=== PATIENT | female | born 1955 | race Caucasian/White ===

== ENCOUNTER 2016-05-09 03:39 | Inpatient (IN) | payer OTHER ==
[2016-05-09] VITALS (17 sets, daily range): BP systolic 95–142; BP diastolic 47–90
[~2016-05-09] VITALS: Ht 162.6 cm; Wt 69.0 kg
[~2016-05-09 03:39] MED LIST: ACETAMINOP160 MG/51 GT; ACETAMINOP160 MG/51 PO; ACETAMINOPHEN650 M7 PO; ADULT SUPPOSIT1 EACH PR; ADULT TUSS100 MG/5 M GT; ALER-CAP25 M2 GT; AMIKACIN (500 MG/2 M IV; AMIKACIN IV; AMLODIPINE BESY10 MG GT; AMLODIPINE BESYL5 MG GT; AQUAPHOR OINTM105 GM TP; AQUAPHOR W-NAT50 GM TP; ARTIFICIAL TEAR15 M1 BOTH EYES; ARTIFICIAL TEAR15 M6 BOTH EYES; ARTIFICIAL TEAR1510 BOTH EYES; ASCORBIC ACID GT; ASCORBIC ACID250 MG GT; ASCORBIC ACID500 M3 GT; ATIVAN0.5 MG GT; ATIVAN1 M1 GT; ATIVAN1 MG G; ATIVAN1 MG GT; ATIVAN2 MG/1 ML IM; ATROVENT H200 INHALA IH; AZACTAM IV; BACLOFEN10 MG GT; BAZA PROTECT CR57 GM TP; BENADRYL50 MG/ML IV; BENEFIBER1 EACH PO; BENZTROPINE ME0.5 MG GT; BICARSIM80 MG GT; BISAC-EVAC10 MG PR; BUDESONIDE0.5 MG/2 M IH; CACARB500L GT; CALCIDOL8000 UNIT/ GT; CALCIDOL8000 UNIT/ PO; CALCIO DEL MAR500 MG GT; CALCIUM CA1250 MG/5 GT; CALTRATE 6001 TABLE2 G; CARAFATE100 MG/ML GT; CEFDINIR300 MG PO; CEFEPIME HCL2 GM IM; CERTA VITE9 MG/15 ML GT; CERTA-VITE240 ML GT; CERTA-VITE240 ML PO; CERTAGEN GT; CHILDREN'S160 MG/15 GT; CHILDREN'S160 MG/16 GT; CHILDREN'S160 MG/16 PO; CHILDREN'S160 MG/18 GT; CHILDREN'S160 MG/23 GT; CHILDREN'S5 MG/5 M1 GT; CHILDREN'S5 MG/5 ML GT; CHLORHEXIDINE473 ML MM; CHLORPROMAZINE100 MG GT; CHLORPROMAZINE25 MG GT; CHLORPROMAZINE25 MG PO; CHLORPROMAZINE50 MG GT; CHLORPROMAZINE50 MG PO; CHOLESTYRAMINE L4 GM PO; CLARITIN10 MG GT; COGENTIN0.5 MG GT; COLACE10 MG/ML GT; COLACE10 MG/ML PO; COLACE100 MG GT; COLACE100 MG PO; COMBIVENT200 INHALA IH; CONSTULOSE10 GM/15 M GT; CONSTULOSE10 GM/15 M PO; CORTANE-B OTIC10 ML BOTH EARS; COUGH SYRU100 MG/5 M GT; CRANBERRY FRUI475 MG GT; CRANBERRY200 MG GT; CRANBERRY307 MG GT; CRANBERRY475 MG GT; Chronulac,Cephulac,E G; Citrate Of Magnesia G; Combivent IH; DEPAKENE250 MG/5 M GT; DEXTROSE 50%50 ML IV; DIFLUCAN100 MG PO; DIOCTO50 MG/5 ML GT; DIOCTO50 MG/5 ML PO; DOCU LIQUI50 MG/5 ML GT; DORIBAX500 MG IV; DOXYCYCLINE HY100 MG GT; DOXYCYCLINE HY100 MG PO; DULCOLAX10 MG PR; DUONEB 2.5-0.5 M3 ML IH; DURAGESIC25 MCG TD; DURAGESIC50 MCG TD; Duragesic TD; ENALAPRIL MALEAT5 MG GT; ENDOCET 5-3251 EAC1 G-TUBE; ENDOCET 5-3251 EACH GT; ENULOSE10 GM/15 M GT; ERGOCALCIF8000 UNIT/ GT; EUCERIN CREME57 GM TP; FENOFIBRATE145 M1 GT; FENTANYL1 EAC1 TD; FEOSOL300 MG/5 M GT; FEOSOL325 MG PO; FEOSOL44 MG/ML GT; FEROSUL220 MG/51 GT; FLORASTOR250 MG GT; FLOVENT 22120 INHALA IH; FOLIC ACID1 MG PO; GABAPENTIN300 MG GT; GAS RELIEF 8080 MG GT; GEMFIBROZIL600 MG GT; GENERLAC10 GM/15 M GT; GLUCAGEN1 MG IM; GLUCAGON HCL1 MG IM; GLUCAGON1 MG IM; GLUCERNA237 ML PO/PEG; GLUCOPHAGE1000 M1 PO; GLUCOPHAGE1000 MG NG/PO; GLYCERIN MC; GLYCERIN PR; GOLDEN AGE240 ML GT; HEPARIN SO5000 UNITS SC; HUMULIN R500 UNITS/ SC; HYDROPHOR OINT454 GM TP; INVANZ1 GM IV; IPRATR-ALBUTEROL3 ML IH; KAY CIEL20 MEQ/15 G-TUBE; LACTINEX,FLO1 PACKET GT; LACTULOSE10 GM/151 GT; LANTUS 3 M100 UNITS1 SC; LANTUS100 UNIT/1 SQ; LASIX40 MG GT; LEVEMIR FL100 UNIT/1 SC; LEVEMIR100 UNIT/2 SC; LEVOTHROID125 MCG G; LEVOTHYROXINE100 MCG GT; LEVOTHYROXINE112 MCG GT; LEVOTHYROXINE150 MCG PO; LEVOXYL100 MCG GT; LEVOXYL112 MCG GT; LIPITOR20 MG PO; LIPITOR40 MG PO; LOPID600 MG GT; LOPID600 MG NG; LOPRESSOR12.5 MG PO; LOPRESSOR25 MG GT; LORATADINE5 MG/5 M3 GT; LORAZEPAM0.5 MG GT; LORAZEPAM1 MG GT; LORAZEPAM1 MG PO; LORAZEPAM2 MG/1 M1 IV; MACRODANTIN100 MG GT; MAXIPIME2 GM IM; METOLAZONE10 MG GT; METOLAZONE2.5 MG PO; METOPROLOL SUCC25 MG PO; METOPROLOL TART25 MG GT; MI-ACID80 MG GT; MI-ACID80 MG PO; MILK OF MAGNESI10 ML G-TUBE; MIRALAX17 GM GT; MORPHINE CON20 MG/M1 SL; MORPHINE SULFA1 DOSE IM; MYCOSTATIN 100,60 ML PO; MYCOSTATIN1 APPLICAT TP; MYLICON,MYLANTA80 MG GT; NEBCIN40 MG/ML IV; NEURONTIN300 MG GT; NEURONTIN50 MG/ML GT; NIACIN500 MG PO; NIZORAL 2% CREA15 GM TP; NORVASC5 MG GT; NORVASC5 MG PO; NOVOLIN R (UNI1 UNIT IV/SC; NOVOLOG (UNITS1 UNIT SC; NOVOLOG 10100 UNITS/ SC; NOVOLOG PE100 UNITS/ SC; NOVOLOG100 UNIT/1 SQ; OXYCODONE HCL5 MG GT; OXYCODONE-ACET1 EACH GT; OXYCODONE5 MG GT; PATADAY2.5 ML OP; PATANOL OP100 DROP/5 BOTH EYES; PERCOCET 5/31 TABLET GT; PERIDEX1 ML MM; PERIOGARD480 ML MM; PERIOGARD480 ML PO; POTASSIUM20 MEQ/11 GT; PRAVACHOL20 MG GT; PRAVASTATIN SOD20 MG GT; PREDNISONE20 MG GT; PREVACID SOLUTA30 M1 GT; PREVACID SOLUTA30 MG GT; PREVACID30 MG GT; PROBIOTIC1 EAC1 GT; PROSOURCE LIQUI30 ML GT; PROSOURCE LIQUI30 ML PO; PROTEIN PO; PROTEXIN PO; PROTONIX40 M1 GT; PROTONIX40 M1 PO; PROTONIX40 MG GT; PROVENTIL,2.5 MG/0.5 IH; PROVENTIL,2.5 MG/3 M IH; PROVENTIL2.5 MG/3 M IH; Peridex PO; Prednisone GT; Q-TUSSIN DM SY240 ML GT; QUESTRAN PACKET4 GM GT; QUETIAPINE FUM400 MG GT; RISAMINE OINTM113 GM TP; RISPERDAL M-TAB2 MG PO; RISPERDAL2 MG G; RISPERIDONE2 MG PO; SENEXON8.8 MG/5 M GT; SENNA8.8 MG/5 M G-TUBE; SENNA8.8 MG/5 M GT; SENNA8.8 MG/5 M PO; SENOKOT GT; SENOKOT5 ML GT; SEROQUEL400 MG PO; SILACE50 MG/5 ML GT; SILTUSSIN100 MG/51 GT; SILVADENE20 GM TP; SIMETHICONE80 MG GT; SIMVASTATIN80 MG GT; STAVZOR500 MG GT; STOOL SOFT50 MG/5 ML GT; SYNTHROID100 MCG GT; SYNTHROID112 MCG GT; THERAGRAN1 TABLET GT; THORAZINE25 MG GT; THORAZINE50 MG GT; TOBRAMYCIN SULFA5 ML BOTH EYES; TOPROL XL50 MG PO; TRAMADOL HCL50 MG GT; TRICOR145 MG GT; TRICOR145 MG PO; TYLENOL REGULA325 MG GT; Tylenol PR; Tylenol Regular Stre PO; ULTRAM50 MG GT; UNITHROID200 MCG PO; VANCOMYCIN HCL1 GM IV; VANCOMYCIN1 GM/250 M IV; VANICREAM113 GM TP; VASOTEC5 MG GT; VITAMIN C100 MG/1 M GT; VITAMIN C250 MG NG; VITAMIN C500 MG/15 GT; VITAMIN D50000 UNI1 GT; Vitamin D G; WELCHOL625 MG GT; ZITHROMAX500 M3 GT; ZOCOR80 M1 GT; ZOFRAN4 MG/2 ML IV; ZOSYN 3.3753.375 GM IV; ZOSYN3.375 GM/5 IV; ZYVOX200 MG/100 IV; [UNRECOGNIZED DRUG - OTHER]; [UNRECOGNIZED DRUG - OTHER] GT; [UNRECOGNIZED DRUG - OTHER] GT; [UNRECOGNIZED DRUG - OTHER] PO; [UNRECOGNIZED DRUG - OTHER] PR
[2016-05-09 04:29] LABS: CARBON DIOXIDE (BICARBONATE) > 40.0 MEQ/L (20-31); VENOUS PCO2 88 mm Hg (41-51)
[2016-05-09 04:42] LABS: CHLORIDE 77 mEq/L (99-109); POTASSIUM 5.7 mEq/L (3.7-5.4); SODIUM 122 mEq/L (136-147)
[2016-05-09 04:44] LABS: GLUCOSE 386 mg/dL (70-99)
[2016-05-09 04:46] LABS: ANION GAP 8 MEQ/L (2-14); HEMATOCRIT 18.3 % (36.0-46.0); MCH 30.8 PG (29.0-34.0); MCHC 30.6 G/DL (30.0-36.0); MCV 100.5 FL (83-99); MEAN PLAT.VOLUME 11.8 uM^3 (9.5-12.4); PLATELET COUNT 189 K/uL (156-360); RBC DIS.WIDTH-CV 16.3 % (11.8-14.6); RBC DIS.WIDTH-SD 55.7 % (39-53)
[2016-05-09 04:47] LABS: RED BLOOD COUNT 1.82 M/uL (3.80-5.20); WHITE BLOOD COUNT 10.4 K/uL (4.1-10.2)
[2016-05-09 04:47] LABS: BASE EXCESS 14.5 mEq/L (-3 to +3); BICARBONATE 42.5 mEq/L (22-26); PCO2 67 mm Hg (35-45); pH 7.41 (7.35-7.45)
[2016-05-09 04:48] LABS: GFR ESTIMATE (CALCULATED) > 59 mL/min/
[2016-05-09 04:48] LABS: COMMENTS - BLOOD GASES C+; DEVICE 840; FI02 50 %; MECHANICAL RATE 22 resp/min; MODE AC; PEEP 5 CM/H20; PO2 108 mm Hg (80-100); SITE LR; TIDAL VOLUME 450 ML; TOTAL RESP RATE 22 resp/min
[2016-05-09 04:49] LABS: UREA NITROGEN (BUN) 49 mg/dL (9-23)
[2016-05-09 04:52] LABS: TROP-I INTERPRETATION NEGATIVE; TROPONIN-I < 0.01 ng/mL (0.0-0.30)
[2016-05-09] MEDS ORDERED: CHLORPROMAZINE25 MG GT (08:33)
[2016-05-09] MEDS ORDERED: SILTUSSIN100 MG/51 GT (08:35)
[2016-05-09 18:21] LABS: METH RESISTANT S AUREUS PCR POSITIVE (NEGATIVE)
[2016-05-09 18:24] LABS: PROBE CHECK PASS
[2016-05-09 21:22] LABS: POINT-OF-CARE METER ID UU14174217; POINT-OF-CARE USER ID PHATLC
[2016-05-09 22:25] LABS: HEMATOCRIT 24.3 % (36.0-46.0); MCHC 32.5 G/DL (30.0-36.0); MCV 95.3 FL (83-99); MEAN PLAT.VOLUME 11.5 uM^3 (9.5-12.4); PLATELET COUNT 192 K/uL (156-360); RBC DIS.WIDTH-CV 16.4 % (11.8-14.6); RBC DIS.WIDTH-SD 56.5 % (39-53); RED BLOOD COUNT 2.55 M/uL (3.80-5.20); WHITE BLOOD COUNT 11.8 K/uL (4.1-10.2)
[2016-05-09 22:36] LABS: ANION GAP 8 MEQ/L (2-14); CHLORIDE 88 MEQ/L (99-109); GFR ESTIMATE (CALCULATED) > 59 mL/min/; SAMPLE HEMOLYSIS CHECK 0; SAMPLE ICTERIC CHECK 0; SAMPLE LIPEMIA CHECK 0; UREA NITROGEN (BUN) 50 mg/dL (9-23)
[2016-05-09 22:41] LABS: GLUCOSE 81 mg/dL (70-99); POTASSIUM 4.2 MEQ/L (3.7-5.4); SODIUM 134 MEQ/L (136-147)
[2016-05-10] VITALS (20 sets, daily range): BP systolic 90–139; BP diastolic 41–62
[2016-05-10 05:28] LABS: HEMATOCRIT 25.4 % (36.0-46.0); MCH 30.3 PG (29.0-34.0); MCHC 31.5 G/DL (30.0-36.0); MCV 96.2 FL (83-99); MEAN PLAT.VOLUME 11.5 uM^3 (9.5-12.4); PLATELET COUNT 193 K/uL (156-360); RBC DIS.WIDTH-CV 16.7 % (11.8-14.6); RBC DIS.WIDTH-SD 57.3 % (39-53); RED BLOOD COUNT 2.64 M/uL (3.80-5.20); WHITE BLOOD COUNT 12.3 K/uL (4.1-10.2)
[2016-05-10 05:55] LABS: ANION GAP 5 MEQ/L (2-14); CHLORIDE 91 MEQ/L (99-109); GFR ESTIMATE (CALCULATED) > 59 mL/min/; GLUCOSE 95 mg/dL (70-99); POTASSIUM 4.3 MEQ/L (3.7-5.4); SAMPLE HEMOLYSIS CHECK 0; SAMPLE ICTERIC CHECK 0; SAMPLE LIPEMIA CHECK 0; SODIUM 134 MEQ/L (136-147); UREA NITROGEN (BUN) 49 mg/dL (9-23)
[2016-05-10 11:57] LABS: POINT-OF-CARE METER ID UU13113748
[2016-05-10 16:03] LABS: POINT-OF-CARE METER ID UU13113748
[2016-05-10 20:59] LABS: POINT-OF-CARE METER ID UU13113748; POINT-OF-CARE USER ID PHATLC
[2016-05-11] VITALS (11 sets, daily range): BP systolic 92–143; BP diastolic 43–70
[2016-05-11 09:30] LABS: POINT-OF-CARE METER ID UU13113731
[2016-05-11 09:30] LABS: ANION GAP 7 MEQ/L (2-14); CHLORIDE 97 MEQ/L (99-109); GFR ESTIMATE (CALCULATED) > 59 mL/min/; GLUCOSE 129 mg/dL (70-99); POTASSIUM 4.6 MEQ/L (3.7-5.4); SAMPLE HEMOLYSIS CHECK 0; SAMPLE ICTERIC CHECK 0; SAMPLE LIPEMIA CHECK 0; SODIUM 140 MEQ/L (136-147); UREA NITROGEN (BUN) 41 mg/dL (9-23)
[2016-05-11 09:32] LABS: EOSINOPHIL (%) 2.2 % (0-5); EOSINOPHIL COUNT 0.3 K/uL (0-0.3); HEMATOCRIT 28.5 % (36.0-46.0); IMMATURE GRANULOCYTE (%) 1.5 % (0.0-0.7); IMMATURE GRANULOCYTE COUNT 0.2 K/uL; LYMPHOCYTE COUNT 1.3 K/uL (1.0-2.8); MCH 30.3 PG (29.0-34.0); MCHC 30.2 G/DL (30.0-36.0); MCV 100.4 FL (83-99); MEAN PLAT.VOLUME 11.2 uM^3 (9.5-12.4); MONOCYTE (%) 3.4 % (3-12); MONOCYTE COUNT 0.5 K/uL (0-0.8); NEUTROPHIL COUNT 10.9 K/uL (1.8-6.4); PLATELET COUNT 198 K/uL (156-360); RBC DIS.WIDTH-CV 16.9 % (11.8-14.6); RBC DIS.WIDTH-SD 60.2 % (39-53); RED BLOOD COUNT 2.84 M/uL (3.80-5.20); WHITE BLOOD COUNT 13.1 K/uL (4.1-10.2)
[2016-05-11 12:26] LABS: POINT-OF-CARE METER ID UU13113803
[2016-05-11 23:16] LABS: POINT-OF-CARE METER ID UU13113731
[2016-05-11 23:59] LABS: POINT-OF-CARE METER ID UU13113731
[2016-05-12] VITALS: BP 130/57
[2016-05-12 04:10] VITALS: BP 127/67
[2016-05-12 06:18] LABS: EOSINOPHIL (%) 2.7 % (0-5); EOSINOPHIL COUNT 0.5 K/uL (0-0.3); HEMATOCRIT 29.1 % (36.0-46.0); IMMATURE GRANULOCYTE COUNT 0.2 K/uL; LYMPHOCYTE COUNT 1.7 K/uL (1.0-2.8); MCH 31.3 PG (29.0-34.0); MCHC 30.6 G/DL (30.0-36.0); MCV 102.5 FL (83-99); MEAN PLAT.VOLUME 11.7 uM^3 (9.5-12.4); MONOCYTE (%) 2.5 % (3-12); MONOCYTE COUNT 0.4 K/uL (0-0.8); NEUTROPHIL (%) 83.7 % (45-76); NEUTROPHIL COUNT 14.2 K/uL (1.8-6.4); PLATELET COUNT 227 K/uL (156-360); RBC DIS.WIDTH-CV 16.9 % (11.8-14.6); RBC DIS.WIDTH-SD 62.3 % (39-53); RED BLOOD COUNT 2.84 M/uL (3.80-5.20)
[2016-05-12 06:35] LABS: POINT-OF-CARE METER ID UU13113731
[2016-05-12 07:49] LABS: ANION GAP 9 MEQ/L (2-14); CHLORIDE 97 MEQ/L (99-109); GFR ESTIMATE (CALCULATED) > 59 mL/min/; POTASSIUM 4.7 MEQ/L (3.7-5.4); SAMPLE HEMOLYSIS CHECK 0; SAMPLE ICTERIC CHECK 0; SAMPLE LIPEMIA CHECK 0; SODIUM 141 MEQ/L (136-147); UREA NITROGEN (BUN) 41 mg/dL (9-23)
[2016-05-12 07:51] LABS: GLUCOSE 83 mg/dL (70-99)
[2016-05-12 08:05] VITALS: BP 129/56
[2016-05-12 09:03] LABS: POINT-OF-CARE METER ID UU13113731
[2016-05-12 12:05] VITALS: BP 124/60
[2016-05-12 16:05] VITALS: BP 128/59
[2016-05-12 20:00] VITALS: BP 99/43
[2016-05-12 22:41] LABS: POINT-OF-CARE METER ID UU13113803
[2016-05-13] VITALS: BP 122/58
[2016-05-13 05:24] LABS: POINT-OF-CARE METER ID UU13113803
[2016-05-13 06:42] LABS: ANION GAP 10 MEQ/L (2-14); CHLORIDE 100 MEQ/L (99-109); GFR ESTIMATE (CALCULATED) > 59 mL/min/; POTASSIUM 5.2 MEQ/L (3.7-5.4); SAMPLE HEMOLYSIS CHECK 0; SAMPLE ICTERIC CHECK 0; SAMPLE LIPEMIA CHECK 0; SODIUM 138 MEQ/L (136-147); UREA NITROGEN (BUN) 38 mg/dL (9-23)
[2016-05-13 06:43] LABS: GLUCOSE 115 mg/dL (70-99)
[2016-05-13 08:00] VITALS: BP 117/47
[2016-05-13 08:57] LABS: MEAN PLAT.VOLUME 11.5 uM^3 (9.5-12.4); NRBC (%) 0.3 /100 WBC (0-0); PLATELET COUNT 246 K/uL (156-360)
[2016-05-13 09:05] LABS: EOSINOPHIL (%) 1.5 % (0-5); EOSINOPHIL COUNT 0.5 K/uL (0-0.3); HEMATOCRIT 27.2 % (36.0-46.0); IMMATURE GRANULOCYTE (%) 0.6 % (0.0-0.7); IMMATURE GRANULOCYTE COUNT 0.2 K/uL; LYMPHOCYTE COUNT 1.2 K/uL (1.0-2.8); MCH 30.5 PG (29.0-34.0); MCHC 29.8 G/DL (30.0-36.0); MCV 102.3 FL (83-99); MONOCYTE (%) 2.2 % (3-12); MONOCYTE COUNT 0.7 K/uL (0-0.8); NEUTROPHIL (%) 91.5 % (45-76); NEUTROPHIL COUNT 27.7 K/uL (1.8-6.4); RBC DIS.WIDTH-CV 16.9 % (11.8-14.6); RBC DIS.WIDTH-SD 61.7 % (39-53); RED BLOOD COUNT 2.66 M/uL (3.80-5.20)
[2016-05-13 09:07] LABS: WHITE BLOOD COUNT 30.3 K/uL (4.1-10.2)
[2016-05-13 11:26] LABS: POINT-OF-CARE METER ID UU13113803
[2016-05-13 11:32] LABS: HEMATOLOGY COMMENT 1 SMEAR COMPATIBLE; PLAT.SUFFICIENCY ADEQUATE
[2016-05-13 12:00] VITALS: BP 102/47
[2016-05-13 17:00] VITALS: BP 118/47
[2016-05-13 20:00] VITALS: BP 118/47
[2016-05-13 21:47] LABS: POINT-OF-CARE METER ID UU13113731
[2016-05-14] VITALS (8 sets, daily range): BP systolic 0–138; BP diastolic 0–69
[2016-05-14 05:51] LABS: POINT-OF-CARE METER ID UU13113803
[2016-05-14 06:27] LABS: EOSINOPHIL (%) 3.6 % (0-5); EOSINOPHIL COUNT 0.5 K/uL (0-0.3); HEMATOCRIT 27.2 % (36.0-46.0); IMMATURE GRANULOCYTE (%) 0.5 % (0.0-0.7); IMMATURE GRANULOCYTE COUNT 0.1 K/uL; LYMPHOCYTE COUNT 1.6 K/uL (1.0-2.8); MCH 31.2 PG (29.0-34.0); MCHC 30.1 G/DL (30.0-36.0); MCV 103.4 FL (83-99); MEAN PLAT.VOLUME 11.7 uM^3 (9.5-12.4); MONOCYTE (%) 2.9 % (3-12); MONOCYTE COUNT 0.4 K/uL (0-0.8); NEUTROPHIL (%) 81.3 % (45-76); NEUTROPHIL COUNT 11.2 K/uL (1.8-6.4); PLATELET COUNT 209 K/uL (156-360); RBC DIS.WIDTH-CV 17.2 % (11.8-14.6); RBC DIS.WIDTH-SD 63.6 % (39-53); RED BLOOD COUNT 2.63 M/uL (3.80-5.20)
[2016-05-14 06:30] LABS: ANION GAP 9 MEQ/L (2-14); CHLORIDE 101 MEQ/L (99-109); GFR ESTIMATE (CALCULATED) > 59 mL/min/; GLUCOSE 134 mg/dL (70-99); POTASSIUM 5.1 MEQ/L (3.7-5.4); SAMPLE HEMOLYSIS CHECK 1; SAMPLE ICTERIC CHECK 0; SAMPLE LIPEMIA CHECK 0; SODIUM 141 MEQ/L (136-147); UREA NITROGEN (BUN) 37 mg/dL (9-23)
[2016-05-14 06:31] LABS: WHITE BLOOD COUNT 13.8 K/uL (4.1-10.2)
[2016-05-14 11:55] LABS: POINT-OF-CARE METER ID UU13113748
[2016-05-14 18:10] LABS: POINT-OF-CARE METER ID UU14174217
[2016-05-14 23:53] LABS: POINT-OF-CARE METER ID UU13113803
[2016-05-15 04:00] VITALS: BP 95/52
[2016-05-15 05:13] LABS: POINT-OF-CARE METER ID UU14174217
[2016-05-15 08:00] VITALS: BP 107/53
[2016-05-15 08:14] LABS: HEMATOCRIT 26.5 % (36.0-46.0); MCH 30.6 PG (29.0-34.0); MCHC 29.4 G/DL (30.0-36.0); MCV 103.9 FL (83-99); MEAN PLAT.VOLUME 11.9 uM^3 (9.5-12.4); PLATELET COUNT 220 K/uL (156-360); RBC DIS.WIDTH-CV 17.3 % (11.8-14.6); RED BLOOD COUNT 2.55 M/uL (3.80-5.20); WHITE BLOOD COUNT 12.6 K/uL (4.1-10.2)
[2016-05-15 08:32] LABS: EOSINOPHIL (%) 4.9 % (0-5); EOSINOPHIL COUNT 0.6 K/uL (0-0.3); IMMATURE GRANULOCYTE (%) 0.5 % (0.0-0.7); IMMATURE GRANULOCYTE COUNT 0.1 K/uL; LYMPHOCYTE COUNT 1.4 K/uL (1.0-2.8); MONOCYTE (%) 3.3 % (3-12); MONOCYTE COUNT 0.4 K/uL (0-0.8); NEUTROPHIL (%) 79.9 % (45-76)
[2016-05-15 08:39] LABS: ANION GAP 6 MEQ/L (2-14); CHLORIDE 104 MEQ/L (99-109); GFR ESTIMATE (CALCULATED) > 59 mL/min/; GLUCOSE 106 mg/dL (70-99); POTASSIUM 4.1 MEQ/L (3.7-5.4); SAMPLE HEMOLYSIS CHECK 0; SAMPLE ICTERIC CHECK 0; SAMPLE LIPEMIA CHECK 0; SODIUM 144 MEQ/L (136-147); UREA NITROGEN (BUN) 39 mg/dL (9-23)
[2016-05-15 08:41] LABS: MAGNESIUM 2.6 mg/dl (1.3-2.7)
[2016-05-15 11:55] LABS: POINT-OF-CARE METER ID UU14174217
[2016-05-15 12:00] VITALS: BP 114/36
[2016-05-15 16:00] VITALS: BP 117/57
[2016-05-15 20:00] VITALS: BP 101/53
[2016-05-16] VITALS: BP 103/52
[2016-05-16 00:51] LABS: POINT-OF-CARE METER ID UU14162636
[2016-05-16 04:00] VITALS: BP 105/56
[2016-05-16 09:00] VITALS: BP 129/61
[2016-05-16 10:15] LABS: HEMATOCRIT 25.5 % (36.0-46.0); MCV 106.3 FL (83-99)
[2016-05-16] MEDS ORDERED: LEVOFLOXACIN750 MG GT (10:36)
[2016-05-16 12:00] VITALS: BP 138/64
[2016-05-16 12:24] LABS: POINT-OF-CARE METER ID UU14162636
== END 2016-05-16 13:40 | DRG 377 ==
LOC: EME 03:39 → EDOF 13:51 → 4WEST 13:51
PROVIDERS: Emergency Medicine; Internal Medicine; Internal Medicine Pulmonary Disease; Surgery
PROC: 5A0 Extracorporeal or Systemic Assistance and Performance, Physiological Systems, Assistance (ICD-10-PCS; principal; 2016-05-09)
PROC: 30233N1 Transfusion of Nonautologous Red Blood Cells into Peripheral Vein, Percutaneous Approach (ICD-10-PCS; principal; 2016-05-09)
DX: K92.2 Gastrointestinal hemorrhage, unspecified (principal); J44.0 Chronic obstructive pulmonary disease with (acute) lower respiratory infection; J69.0 Pneumonitis due to inhalation of food and vomit; D62 Acute posthemorrhagic anemia; J96.10 Chronic respiratory failure, unspecified whether with hypoxia or hypercapnia; E87.1 Hypo-osmolality and hyponatremia; Z99.11 Dependence on respirator [ventilator] status; R74.8 Abnormal levels of other serum enzymes; J98.11 Atelectasis; E11.65 Type 2 diabetes mellitus with hyperglycemia; B95.7 Other staphylococcus as the cause of diseases classified elsewhere; D50.0 Iron deficiency anemia secondary to blood loss (chronic); F20.9 Schizophrenia, unspecified; F41.9 Anxiety disorder, unspecified; E87.5 Hyperkalemia; I10 Essential (primary) hypertension; E03.9 Hypothyroidism, unspecified; Z87.81 Personal history of (healed) traumatic fracture; Z93.0 Tracheostomy status; Z93.1 Gastrostomy status; Z86.010 Personal history of colon polyps; Z79.4 Long term (current) use of insulin; Z88.1 Allergy status to other antibiotic agents
CPT/HCPCS: 36600; 70491; 71010; 80048; 80048 91; 80202; 82803; 82948; 83605; 83735; 83880; 84100; 84484; 85014; 85018; 85025; 85027; 86850; 86900; 86901; 86920; 87040; 87070; 87077; 87081; 87086; 87185; 87186; 87205; 87641; 87801; 93005; 93306; 94002; 94003; 94640; 94640 76; 94760; 99202; 99281; 99285; J0692; J1815; J2405; J2543; J3370; J7030; J7040; J7050; P9016; Q0161

== ENCOUNTER 2016-06-07 15:27 | Emergency (ER) | payer OTHER ==
[2016-06-07] VITALS (13 sets, daily range): BP systolic 104–199; BP diastolic 56–81
[~2016-06-07] VITALS: Ht 165.1 cm; Wt 61.8 kg
[~2016-06-07 15:27] MED LIST changes: +LEVOFLOXACIN750 MG GT
[2016-06-07 16:34] LABS: EOSINOPHIL (%) 1.5 % (0-5); EOSINOPHIL COUNT 0.1 K/uL (0-0.3); HEMATOCRIT 17.1 % (36.0-46.0); IMMATURE GRANULOCYTE (%) 0.5 % (0.0-0.7); IMMATURE GRANULOCYTE COUNT 0.4 K/uL; LYMPHOCYTE COUNT 1.1 K/uL (1.0-2.8); MCH 31.7 PG (29.0-34.0); MCHC 29.8 G/DL (30.0-36.0); MCV 106.2 FL (83-99); MEAN PLAT.VOLUME 11.5 uM^3 (9.5-12.4); MONOCYTE (%) 3.9 % (3-12); MONOCYTE COUNT 0.3 K/uL (0-0.8); NEUTROPHIL (%) 81.2 % (45-76); NEUTROPHIL COUNT 6.9 K/uL (1.8-6.4); PLATELET COUNT 183 K/uL (156-360); RBC DIS.WIDTH-CV 16.1 % (11.8-14.6); RBC DIS.WIDTH-SD 58.7 % (39-53)
[2016-06-07 16:37] LABS: RED BLOOD COUNT 1.61 M/uL (3.80-5.20); WHITE BLOOD COUNT 8.5 K/uL (4.1-10.2)
[2016-06-07 16:43] LABS: CHLORIDE 90 mEq/L (99-109); POTASSIUM 4.6 mEq/L (3.7-5.4); SODIUM 138 mEq/L (136-147)
[2016-06-07 16:45] LABS: GLUCOSE 57 mg/dL (70-99)
[2016-06-07 16:47] LABS: ANION GAP 10 MEQ/L (2-14); TOTAL BILIRUBIN 0.3 mg/dL (0.0-1.0)
[2016-06-07 16:49] LABS: ALKALINE PHOSPHATASE 124 IU/L (3-129); GFR ESTIMATE (CALCULATED) > 59 mL/min/
[2016-06-07 16:50] LABS: UREA NITROGEN (BUN) 70 mg/dL (9-23)
[2016-06-07] MEDS ORDERED: PERIDEX1 ML MM (17:37)
[2016-06-07 17:59] LABS: POINT-OF-CARE METER ID UU13113702
== END 2016-06-07 23:04 ==
LOC: EME 15:27
PROVIDERS: Emergency Medicine
PROC: 5A0935Z Assistance with Respiratory Ventilation, Less than 24 Consecutive Hours (ICD-10-PCS; principal; 2016-06-07)
PROC: 30233N1 Transfusion of Nonautologous Red Blood Cells into Peripheral Vein, Percutaneous Approach (ICD-10-PCS; principal; 2016-06-07)
DX: D62 Acute posthemorrhagic anemia (principal); K92.2 Gastrointestinal hemorrhage, unspecified; J96.90 Respiratory failure, unspecified, unspecified whether with hypoxia or hypercapnia; Z93.0 Tracheostomy status; Z99.11 Dependence on respirator [ventilator] status; J45.909 Unspecified asthma, uncomplicated; J44.9 Chronic obstructive pulmonary disease, unspecified; E11.9 Type 2 diabetes mellitus without complications; I10 Essential (primary) hypertension; E03.9 Hypothyroidism, unspecified; M81.0 Age-related osteoporosis without current pathological fracture; G20 Parkinson's disease; Z86.14 Personal history of Methicillin resistant Staphylococcus aureus infection; Z79.4 Long term (current) use of insulin; Z87.891 Personal history of nicotine dependence
CPT/HCPCS: 71010; 80053; 82948; 85025; 86850; 86900; 86901; 86920; 94002; 94760; 99281; 99285; J7030; P9016

== ENCOUNTER → 2016-06-14 | Outpatient (CLI) | payer OTHER ==
[~2016-06-14] MED LIST changes: +ARTIFICIALS TEA30 ML BOTH EYES; +ASPIRIN81 M2 GT; +CALMOSEPTINE O120 GM TP; +DUONEB 2.5-0.5 M3 ML AEROSOL; +KEFLEX500 MG GT; +LEVO-T125 MCG GT; -LORAZEPAM1 MG PO; +PREDNISONE10 MG PO; +SELRX180 ML TP; +THORAZINE25 MG PO; +VITAMIN D31000 UNI2 GT; +[UNRECOGNIZED DRUG - OTHER] TP
== END ==
LOC: PICC 13:00
DX: I87.8 Other specified disorders of veins (principal)
CPT/HCPCS: 76937

== ENCOUNTER → 2016-06-21 | Outpatient (CLI) | payer OTHER ==
[~2016-06-21] MED LIST changes: -ARTIFICIALS TEA30 ML BOTH EYES; -ASPIRIN81 M2 GT; -CALMOSEPTINE O120 GM TP; -DUONEB 2.5-0.5 M3 ML AEROSOL; -KEFLEX500 MG GT; -LEVO-T125 MCG GT; +LORAZEPAM1 MG PO; -PREDNISONE10 MG PO; -SELRX180 ML TP; -THORAZINE25 MG PO; -VITAMIN D31000 UNI2 GT; -[UNRECOGNIZED DRUG - OTHER] TP
== END ==
LOC: AMB 09:00
DX: I87.8 Other specified disorders of veins (principal); D64.9 Anemia, unspecified; J96.10 Chronic respiratory failure, unspecified whether with hypoxia or hypercapnia; Z99.11 Dependence on respirator [ventilator] status; J44.9 Chronic obstructive pulmonary disease, unspecified; E11.9 Type 2 diabetes mellitus without complications; I10 Essential (primary) hypertension; E78.5 Hyperlipidemia, unspecified; E03.9 Hypothyroidism, unspecified; F25.9 Schizoaffective disorder, unspecified; Z79.4 Long term (current) use of insulin
CPT/HCPCS: 94002; 99214

== ENCOUNTER 2016-07-01 11:06 | Inpatient (IN) | payer OTHER ==
[~2016-07-01] VITALS: Ht 167.6 cm; Wt 70.8 kg
[2016-07-01] VITALS (16 sets, daily range): BP systolic 114–215; BP diastolic 36–86
[~2016-07-01 11:06] MED LIST changes: +CALMOSEPTINE O120 GM TP; +LEVO-T125 MCG GT; -LORAZEPAM1 MG PO; +SELRX180 ML TP; +[UNRECOGNIZED DRUG - OTHER] TP
[2016-07-01 11:56] LABS: BASE EXCESS 15.8 mEq/L (-3 to +3); BICARBONATE 42.1 mEq/L (22-26); CARBOXY HGB 1.9 % (0-5); METHEMOGLOBIN 1.1 % (0-1.5); PCO2 68 mm Hg (35-45); PO2 153 mm Hg (80-100)
[2016-07-01 11:57] LABS: COMMENTS - BLOOD GASES A+C+; DEVICE 840; FI02 60 %; MECHANICAL RATE 22 resp/min; MODE AC; PEEP 5 CM/H20; SITE RR; TIDAL VOLUME 450 ML; TOTAL RESP RATE 22 resp/min
[2016-07-01 12:02] LABS: INTER. NORMALIZED RATIO 1.1; PTT 26.7 (25-32)
[2016-07-01 12:07] LABS: EOSINOPHIL (%) 0.4 % (0-5); EOSINOPHIL COUNT 0.1 K/uL (0-0.3); HEMATOCRIT 21.6 % (36.0-46.0); IMMATURE GRANULOCYTE (%) 1.5 % (0.0-0.7); IMMATURE GRANULOCYTE COUNT 0.2 K/uL; INSTRUMENT ABS NEUTROPHIL CT 11.5 K/uL; LYMPHOCYTE COUNT 0.6 K/uL (1.0-2.8); MCH 30.5 PG (29.0-34.0); MEAN PLAT.VOLUME 12.2 uM^3 (9.5-12.4); MONOCYTE (%) 4.9 % (3-12); MONOCYTE COUNT 0.6 K/uL (0-0.8); NEUTROPHIL (%) 88.8 % (45-76); NEUTROPHIL COUNT 11.5 K/uL (1.8-6.4); PLATELET COUNT 185 K/uL (156-360); RBC DIS.WIDTH-CV 17.2 % (11.8-14.6); RBC DIS.WIDTH-SD 61.6 % (39-53)
[2016-07-01 12:08] LABS: MCV 98.2 FL (83-99); WHITE BLOOD COUNT 12.9 K/uL (4.1-10.2)
[2016-07-01 12:11] LABS: CHLORIDE 82 mEq/L (99-109); SODIUM 126 mEq/L (136-147)
[2016-07-01 12:13] LABS: GLUCOSE 263 mg/dL (70-99); TROP-I INTERPRETATION NEGATIVE; TROPONIN-I < 0.01 ng/mL (0.0-0.30)
[2016-07-01 12:14] LABS: ANION GAP 8 MEQ/L (2-14)
[2016-07-01 12:17] LABS: GFR ESTIMATE (CALCULATED) > 59 mL/min/
[2016-07-01 12:18] LABS: UREA NITROGEN (BUN) 56 mg/dL (9-23)
[2016-07-01 12:21] LABS: POINT-OF-CARE METER ID UU14100415
[2016-07-01 12:22] LABS: POTASSIUM 6.4 mEq/L (3.7-5.4)
[2016-07-01] MEDS ORDERED: THORAZINE25 MG GT (13:10)
[2016-07-01] MEDS ORDERED: CACARB500L GT (13:11)
[2016-07-01 13:18] LABS: CHLORIDE 83 mEq/L (99-109); POTASSIUM 5.9 mEq/L (3.7-5.4); SODIUM 126 mEq/L (136-147)
[2016-07-01 13:21] LABS: ANION GAP 8 MEQ/L (2-14)
[2016-07-01] MEDS ORDERED: FEROSUL220 MG/51 GT (13:21)
[2016-07-01] MEDS ORDERED: DOCU LIQUI50 MG/5 ML GT (13:22)
[2016-07-01 13:23] LABS: GFR ESTIMATE (CALCULATED) > 59 mL/min/
[2016-07-01 13:24] LABS: UREA NITROGEN (BUN) 57 mg/dL (9-23)
[2016-07-01] MEDS ORDERED: NEURONTIN300 MG GT (13:25)
[2016-07-01] MEDS ORDERED: PERIDEX1 ML MM (13:32)
[2016-07-01 13:47] LABS: GLUCOSE 405 mg/dL (70-99)
[2016-07-01] MEDS ORDERED: KEFLEX500 MG GT (15:16)
[2016-07-01] MEDS ORDERED: VITAMIN D31000 UNI2 GT (15:19)
[2016-07-01] MEDS ORDERED: ARTIFICIALS TEA30 ML BOTH EYES (15:22)
[2016-07-01] MEDS ORDERED: GLUCAGEN1 MG IM (15:23)
[2016-07-01] MEDS ORDERED: THORAZINE50 MG GT (15:25)
[2016-07-01] MEDS ORDERED: THORAZINE25 MG PO (15:26)
[2016-07-01] MEDS ORDERED: CHLORPROMAZINE50 MG PO (15:27)
[2016-07-01 19:38] LABS: CREATINE KINASE 27 IU/L (1-294); TOTAL CK 27 IU/L (1-294)
[2016-07-01 19:39] LABS: ANION GAP 6 MEQ/L (2-14); CHLORIDE 83 MEQ/L (99-109); GFR ESTIMATE (CALCULATED) > 59 mL/min/; GLUCOSE 254 mg/dL (70-99); MAGNESIUM 2.3 mg/dl (1.3-2.7); POTASSIUM 5.7 MEQ/L (3.7-5.4); SAMPLE HEMOLYSIS CHECK 0; SAMPLE ICTERIC CHECK 0; SAMPLE LIPEMIA CHECK 0; SODIUM 126 MEQ/L (136-147); UREA NITROGEN (BUN) 58 mg/dL (9-23)
[2016-07-01 19:42] LABS: TROP-I INTERPRETATION INDETERMINATE; TROPONIN-I 0.53 ng/mL (0.0-0.30)
[2016-07-01 19:45] LABS: HEMATOCRIT 30.7 % (36.0-46.0); MCH 31.1 PG (29.0-34.0); MCHC 33.2 G/DL (30.0-36.0); NRBC (%) 0.1 /100 WBC (0-0); PLATELET COUNT 181 K/uL (156-360); RBC DIS.WIDTH-CV 16.8 % (11.8-14.6); RBC DIS.WIDTH-SD 56.3 % (39-53); WHITE BLOOD COUNT 14.5 K/uL (4.1-10.2)
[2016-07-01 19:56] LABS: MCV 93.6 FL (83-99); RED BLOOD COUNT 3.28 M/uL (3.80-5.20)
[2016-07-01 20:06] LABS: CK-MB 1.5 ng/mL (0.0-4.9)
[2016-07-01 21:23] LABS: BASE EXCESS 17.3 mEq/L (-3 to +3); BICARBONATE 46.8 mEq/L (22-26); METHEMOGLOBIN 2.8 % (0-1.5); PCO2 93 mm Hg (35-45); PO2 56 mm Hg (80-100); pH 7.31 (7.35-7.45)
[2016-07-01 21:24] LABS: COMMENTS - BLOOD GASES A+C+; DEVICE 840; FI02 60 %; MECHANICAL RATE 28 resp/min; MODE AC; PEEP 5 CM/H20; SITE LR; TIDAL VOLUME 280 ML; TOTAL RESP RATE 28 resp/min
[2016-07-01 23:20] LABS: POINT-OF-CARE METER ID UU14162636
[2016-07-01 23:57] LABS: BICARBONATE 39.5 mEq/L (22-26); CARBOXY HGB 1.3 % (0-5); METHEMOGLOBIN 1.6 % (0-1.5); pH 7.36 (7.35-7.45)
[2016-07-01 23:58] LABS: COMMENTS - BLOOD GASES C+; DEVICE PB840; FI02 80 %; MECHANICAL RATE 32 resp/min; MODE AC; PCO2 70 mm Hg (35-45); PEEP 5 CM/H20; PO2 223 mm Hg (80-100); SITE LB; TIDAL VOLUME 300 ML; TOTAL RESP RATE 32 resp/min
[2016-07-02] VITALS (23 sets, daily range): BP systolic 97–195; BP diastolic 41–75
[2016-07-02 01:10] LABS: CREATINE KINASE 28 IU/L (1-294); TOTAL CK 28 IU/L (1-294)
[2016-07-02 01:14] LABS: TROP-I INTERPRETATION INDETERMINATE; TROPONIN-I 0.38 ng/mL (0.0-0.30)
[2016-07-02 06:08] LABS: TROP-I INTERPRETATION NEGATIVE; TROPONIN-I 0.25 ng/mL (0.0-0.30)
[2016-07-02 06:11] LABS: UR CREATININE CONCENTRATION 12.4 MG/DL
[2016-07-02 06:11] LABS: POINT-OF-CARE METER ID UU14174217
[2016-07-02 06:16] LABS: EOSINOPHIL (%) 0.6 % (0-5); HEMATOCRIT 27.1 % (36.0-46.0); IMMATURE GRANULOCYTE (%) 2.9 % (0.0-0.7); IMMATURE GRANULOCYTE COUNT 0.2 K/uL; INSTRUMENT ABS NEUTROPHIL CT 5.6 K/uL; LYMPHOCYTE COUNT 0.8 K/uL (1.0-2.8); MCH 30.7 PG (29.0-34.0); MCHC 32.1 G/DL (30.0-36.0); MCV 95.8 FL (83-99); MEAN PLAT.VOLUME 12.5 uM^3 (9.5-12.4); MONOCYTE COUNT 0.4 K/uL (0-0.8); NEUTROPHIL (%) 78.6 % (45-76); NEUTROPHIL COUNT 5.6 K/uL (1.8-6.4); NRBC (%) 0.3 /100 WBC (0-0); PLATELET COUNT 150 K/uL (156-360); RBC DIS.WIDTH-CV 17.8 % (11.8-14.6); RED BLOOD COUNT 2.83 M/uL (3.80-5.20)
[2016-07-02 06:18] LABS: WHITE BLOOD COUNT 7.2 K/uL (4.1-10.2)
[2016-07-02 07:17] LABS: CK-MB 1.1 ng/mL (0.0-4.9)
[2016-07-02 07:22] LABS: ANION GAP 6 MEQ/L (2-14); GFR ESTIMATE (CALCULATED) > 59 mL/min/; GLUCOSE 288 mg/dL (70-99); MAGNESIUM 2.1 mg/dl (1.3-2.7); SAMPLE HEMOLYSIS CHECK 0; SAMPLE ICTERIC CHECK 0; SAMPLE LIPEMIA CHECK 0; UREA NITROGEN (BUN) 56 mg/dL (9-23)
[2016-07-02 07:27] LABS: CHLORIDE 92 MEQ/L (99-109); POTASSIUM 3.7 MEQ/L (3.7-5.4); SODIUM 138 MEQ/L (136-147)
[2016-07-02 08:07] LABS: CREATINE KINASE 16 IU/L (1-294); TOTAL CK 16 IU/L (1-294)
[2016-07-02 12:54] LABS: POINT-OF-CARE METER ID UU14162636
[2016-07-02 12:59] LABS: CREATINE KINASE 16 IU/L (1-294); TOTAL CK 16 IU/L (1-294)
[2016-07-02 13:01] LABS: TROP-I INTERPRETATION NEGATIVE; TROPONIN-I 0.17 ng/mL (0.0-0.30)
[2016-07-02 13:21] LABS: CK-MB 1.4 ng/mL (0.0-4.9)
[2016-07-02 14:27] LABS: BASE EXCESS 18.2 mEq/L (-3 to +3); BICARBONATE 46.9 mEq/L (22-26); CARBOXY HGB 1.5 % (0-5); COMMENTS - BLOOD GASES A+C+; DEVICE 840; FI02 70 %; MECHANICAL RATE 32 resp/min; METHEMOGLOBIN 1.4 % (0-1.5); MODE AC; PCO2 87 mm Hg (35-45); PEEP 5 CM/H20; PO2 134 mm Hg (80-100); SITE RR; TIDAL VOLUME 300 ML; TOTAL RESP RATE 32 resp/min; pH 7.34 (7.35-7.45)
[2016-07-02 17:39] LABS: POINT-OF-CARE METER ID UU14174217; POINT-OF-CARE USER ID 606021424
[2016-07-02 22:34] LABS: BASE EXCESS 17.1 mEq/L (-3 to +3); BICARBONATE 44.8 mEq/L (22-26); CARBOXY HGB 1.2 % (0-5); COMMENTS - BLOOD GASES A+C+; METHEMOGLOBIN 1.4 % (0-1.5); PCO2 74 mm Hg (35-45); PO2 183 mm Hg (80-100); SITE RR; pH 7.39 (7.35-7.45)
[2016-07-02 22:35] LABS: DEVICE VENT; FI02 70 %; MECHANICAL RATE 32 resp/min; MODE AC; PEEP 5 CM/H20; TIDAL VOLUME 350 ML; TOTAL RESP RATE 32 resp/min
[2016-07-02 23:38] LABS: POINT-OF-CARE METER ID UU13113803
[2016-07-03] VITALS (21 sets, daily range): BP systolic 123–154; BP diastolic 50–76
[2016-07-03 06:10] LABS: EOSINOPHIL (%) 0 % (0-5); HEMATOCRIT 27.1 % (36.0-46.0); IMMATURE GRANULOCYTE (%) 2.6 % (0.0-0.7); IMMATURE GRANULOCYTE COUNT 0.2 K/uL; INSTRUMENT ABS NEUTROPHIL CT 7.5 K/uL; LYMPHOCYTE COUNT 0.5 K/uL (1.0-2.8); MCH 30.9 PG (29.0-34.0); MCHC 31.7 G/DL (30.0-36.0); MCV 97.5 FL (83-99); MEAN PLAT.VOLUME 12.4 uM^3 (9.5-12.4); MONOCYTE (%) 3.1 % (3-12); MONOCYTE COUNT 0.3 K/uL (0-0.8); NEUTROPHIL (%) 88.8 % (45-76); NEUTROPHIL COUNT 7.5 K/uL (1.8-6.4); PLATELET COUNT 151 K/uL (156-360); RBC DIS.WIDTH-CV 17.6 % (11.8-14.6); RBC DIS.WIDTH-SD 62.6 % (39-53); RED BLOOD COUNT 2.78 M/uL (3.80-5.20); WHITE BLOOD COUNT 8.4 K/uL (4.1-10.2)
[2016-07-03 06:13] LABS: POINT-OF-CARE METER ID UU14174217
[2016-07-03 06:25] LABS: ANION GAP 8 MEQ/L (2-14); CHLORIDE 96 MEQ/L (99-109); GFR ESTIMATE (CALCULATED) > 59 mL/min/; GLUCOSE 256 mg/dL (70-99); MAGNESIUM 2.2 mg/dl (1.3-2.7); SAMPLE HEMOLYSIS CHECK 0; SAMPLE ICTERIC CHECK 0; SAMPLE LIPEMIA CHECK 0; SODIUM 143 MEQ/L (136-147); UREA NITROGEN (BUN) 49 mg/dL (9-23)
[2016-07-03 09:46] LABS: TROP-I INTERPRETATION NEGATIVE; TROPONIN-I 0.07 ng/mL (0.0-0.30)
[2016-07-03 14:02] LABS: POINT-OF-CARE METER ID UU14174217
[2016-07-03 18:06] LABS: POINT-OF-CARE METER ID UU14174217
[2016-07-04] VITALS (14 sets, daily range): BP systolic 112–168; BP diastolic 60–78
[2016-07-04 01:46] LABS: POINT-OF-CARE METER ID UU14174217
[2016-07-04 06:01] LABS: EOSINOPHIL (%) 0.2 % (0-5); HEMATOCRIT 28.8 % (36.0-46.0); IMMATURE GRANULOCYTE (%) 3.8 % (0.0-0.7); IMMATURE GRANULOCYTE COUNT 0.5 K/uL; LYMPHOCYTE COUNT 0.7 K/uL (1.0-2.8); MCH 30.7 PG (29.0-34.0); MCHC 30.2 G/DL (30.0-36.0); MEAN PLAT.VOLUME 12.6 uM^3 (9.5-12.4); MONOCYTE (%) 2.9 % (3-12); MONOCYTE COUNT 0.3 K/uL (0-0.8); NEUTROPHIL (%) 86.6 % (45-76); NEUTROPHIL COUNT 10.1 K/uL (1.8-6.4); PLATELET COUNT 169 K/uL (156-360); RBC DIS.WIDTH-CV 17.7 % (11.8-14.6); RBC DIS.WIDTH-SD 65.3 % (39-53); RED BLOOD COUNT 2.83 M/uL (3.80-5.20)
[2016-07-04 06:02] LABS: INSTRUMENT ABS NEUTROPHIL CT 10.1 K/uL
[2016-07-04 06:03] LABS: MCV 101.8 FL (83-99); WHITE BLOOD COUNT 11.7 K/uL (4.1-10.2)
[2016-07-04 06:22] LABS: ANION GAP 6 MEQ/L (2-14); CHLORIDE 101 MEQ/L (99-109); GFR ESTIMATE (CALCULATED) > 59 mL/min/; GLUCOSE 183 mg/dL (70-99); MAGNESIUM 2.4 mg/dl (1.3-2.7); SAMPLE HEMOLYSIS CHECK 0; SAMPLE ICTERIC CHECK 0; SAMPLE LIPEMIA CHECK 0; SODIUM 143 MEQ/L (136-147); UREA NITROGEN (BUN) 45 mg/dL (9-23)
[2016-07-04 06:42] LABS: POINT-OF-CARE METER ID UU13113731
[2016-07-04 11:45] LABS: POINT-OF-CARE METER ID UU13113731
[2016-07-04 17:22] LABS: POINT-OF-CARE METER ID UU14162636
[2016-07-04 20:54] LABS: POINT-OF-CARE METER ID UU14174217
[2016-07-04 21:19] LABS: POINT-OF-CARE METER ID UU14174217
[2016-07-05] VITALS (8 sets, daily range): BP systolic 133–165; BP diastolic 61–94
[2016-07-05 00:19] LABS: POINT-OF-CARE METER ID UU14174217
[2016-07-05 05:37] LABS: BASE EXCESS 16.9 mEq/L (-3 to +3); BICARBONATE 42.1 mEq/L (22-26); CARBOXY HGB 1.9 % (0-5); COMMENTS - BLOOD GASES C+; DEVICE 840; FI02 40 %; MECHANICAL RATE 24 resp/min; METHEMOGLOBIN 1.3 % (0-1.5); MODE AC; PCO2 54 mm Hg (35-45); PO2 75 mm Hg (80-100); SITE LR; TOTAL RESP RATE 24 resp/min
[2016-07-05 05:38] LABS: PEEP 5 CM/H20; TIDAL VOLUME 400 ML
[2016-07-05 07:05] LABS: POINT-OF-CARE METER ID UU14174217
[2016-07-05 07:33] LABS: BASOPHIL COUNT 0.1 K/uL (0-0.1); EOSINOPHIL COUNT 0.1 K/uL (0-0.3); HEMATOCRIT 29.4 % (36.0-46.0); IMMATURE GRANULOCYTE (%) 2.5 % (0.0-0.7); IMMATURE GRANULOCYTE COUNT 0.4 K/uL; INSTRUMENT ABS NEUTROPHIL CT 11.9 K/uL; LYMPHOCYTE COUNT 1.6 K/uL (1.0-2.8); MCH 30.4 PG (29.0-34.0); MCHC 29.9 G/DL (30.0-36.0); MCV 101.7 FL (83-99); MEAN PLAT.VOLUME 12.3 uM^3 (9.5-12.4); MONOCYTE COUNT 0.6 K/uL (0-0.8); NEUTROPHIL (%) 81.5 % (45-76); NEUTROPHIL COUNT 11.9 K/uL (1.8-6.4); NRBC (%) 0.1 /100 WBC (0-0); PLATELET COUNT 168 K/uL (156-360); RBC DIS.WIDTH-CV 17.1 % (11.8-14.6); RBC DIS.WIDTH-SD 63.8 % (39-53); RED BLOOD COUNT 2.89 M/uL (3.80-5.20); WHITE BLOOD COUNT 14.6 K/uL (4.1-10.2)
[2016-07-05 08:42] LABS: ANION GAP 7 MEQ/L (2-14); CHLORIDE 101 MEQ/L (99-109); GFR ESTIMATE (CALCULATED) > 59 mL/min/; MAGNESIUM 2.3 mg/dl (1.3-2.7); SAMPLE HEMOLYSIS CHECK 0; SAMPLE ICTERIC CHECK 0; SAMPLE LIPEMIA CHECK 0; SODIUM 142 MEQ/L (136-147); UREA NITROGEN (BUN) 40 mg/dL (9-23)
[2016-07-05 08:49] LABS: GLUCOSE 100 mg/dL (70-99)
[2016-07-05] MEDS ORDERED: ASPIRIN81 M2 GT (11:55)
[2016-07-05] MEDS ORDERED: PREDNISONE10 MG PO (11:56)
[2016-07-05] MEDS ORDERED: DUONEB 2.5-0.5 M3 ML AEROSOL (11:57)
[2016-07-07 08:00] LABS: POINT-OF-CARE METER ID UU14174217
== END 2016-07-05 15:06 | DRG 167 ==
LOC: EME → EDBD 11:06 → EME 11:06 → EDOF 14:53 → 4WEST 14:53
PROVIDERS: Emergency Medicine; Family Medicine Sports Medicine; Hospitalist; Internal Medicine; Internal Medicine Nephrology; Internal Medicine Pulmonary Disease
DX: J96.22 Acute and chronic respiratory failure with hypercapnia (principal); J44.1 Chronic obstructive pulmonary disease with (acute) exacerbation; J44.0 Chronic obstructive pulmonary disease with (acute) lower respiratory infection; E87.1 Hypo-osmolality and hyponatremia; N17.9 Acute kidney failure, unspecified; K92.2 Gastrointestinal hemorrhage, unspecified; J98.11 Atelectasis; Z99.11 Dependence on respirator [ventilator] status; J96.21 Acute and chronic respiratory failure with hypoxia; J20.9 Acute bronchitis, unspecified; B96.5 Pseudomonas (aeruginosa) (mallei) (pseudomallei) as the cause of diseases classified elsewhere; E87.5 Hyperkalemia; E87.8 Other disorders of electrolyte and fluid balance, not elsewhere classified; I87.8 Other specified disorders of veins; D63.8 Anemia in other chronic diseases classified elsewhere; E11.65 Type 2 diabetes mellitus with hyperglycemia; I48.2 Chronic atrial fibrillation; E03.9 Hypothyroidism, unspecified; I10 Essential (primary) hypertension; J84.10 Pulmonary fibrosis, unspecified; E78.5 Hyperlipidemia, unspecified; F25.9 Schizoaffective disorder, unspecified; E66.9 Obesity, unspecified; Z93.0 Tracheostomy status; Z93.1 Gastrostomy status; Z79.4 Long term (current) use of insulin; Q27.33 Arteriovenous malformation of digestive system vessel; Z88.1 Allergy status to other antibiotic agents
CPT/HCPCS: 36600; 70450; 71010; 71275; 80048; 80048 91; 80202; 82436; 82550; 82550 91; 82553; 82570; 82803; 82948; 83735; 83930; 83935; 84100; 84133; 84300; 84484; 85025; 85027; 85610; 85730; 86850; 86900; 86901; 86920; 87040; 87070; 87077; 87081; 87086; 87186; 87205; 87641; 93005; 94002; 94003; 94640; 94640 76; 94667; 94668; 94760; 99202; 99281; 99284; C1751; C1769; C1894; J0171; J0360; J1815; J2250; J2543; J2920; J2930; J3010; J3370; J3480; J7030; J7050; J7608; P9016; Q0161

== ENCOUNTER → 2016-07-25 | Outpatient (CLI) | payer OTHER ==
[~2016-07-25] MED LIST changes: +ARTIFICIALS TEA30 ML BOTH EYES; +ASPIRIN81 M2 GT; +BENZTROPINE ME0.5 MG PO; +DUONEB 2.5-0.5 M3 ML AEROSOL; +KEFLEX500 MG GT; +PREDNISONE10 MG PO; +THORAZINE25 MG PO; +VITAMIN D31000 UNI2 GT
[2016-07-25 11:03] LABS: HEMATOCRIT 32.1 % (36.0-46.0); MCH 31.7 PG (29.0-34.0); MCHC 32.4 G/DL (30.0-36.0); MCV 97.9 FL (83-99); MEAN PLAT.VOLUME 11.8 uM^3 (9.5-12.4); NRBC (%) 0.2 /100 WBC (0-0); PLATELET COUNT 213 K/uL (156-360); RBC DIS.WIDTH-CV 16.1 % (11.8-14.6); RBC DIS.WIDTH-SD 57.1 % (39-53); RED BLOOD COUNT 3.28 M/uL (3.80-5.20); WHITE BLOOD COUNT 11.6 K/uL (4.1-10.2)
== END ==
LOC: AMB 08:00
PROVIDERS: Physician Assistant
DX: T82.898A Other specified complication of vascular prosthetic devices, implants and grafts, initial encounter (principal); I87.8 Other specified disorders of veins; Y83.1 Surgical operation with implant of artificial internal device as the cause of abnormal reaction of the patient, or of later complication, without mention of misadventure at the time of the procedure; Z88.8 Allergy status to other drugs, medicaments and biological substances; J96.10 Chronic respiratory failure, unspecified whether with hypoxia or hypercapnia; Z99.11 Dependence on respirator [ventilator] status
CPT/HCPCS: 85027; 87040; 94002; 99212

== ENCOUNTER 2016-08-05 22:00 | Inpatient (IN) | payer OTHER ==
[~2016-08-05] VITALS: Ht 167.6 cm; Wt 71.2 kg
[~2016-08-05 22:00] MED LIST changes: -THORAZINE25 MG PO
[2016-08-05 23:20] LABS: PROTHROMBIN TIME 10.5 (9.2-11.2)
[2016-08-05 23:21] LABS: CHLORIDE 78 mEq/L (99-109)
[2016-08-05 23:23] LABS: GLUCOSE 242 mg/dL (70-99)
[2016-08-05 23:24] LABS: ANION GAP 12 MEQ/L (2-14)
[2016-08-05 23:25] LABS: TOTAL BILIRUBIN 0.2 mg/dL (0.0-1.0)
[2016-08-05 23:27] LABS: ALKALINE PHOSPHATASE 84 IU/L (3-129); GFR ESTIMATE (CALCULATED) > 59 mL/min/; HEMATOCRIT 12.4 % (36.0-46.0); MCH 33.1 PG (29.0-34.0); MCHC 34.7 G/DL (30.0-36.0); MCV 95.4 FL (83-99); MEAN PLAT.VOLUME 11.7 uM^3 (9.5-12.4); NRBC (%) 0.1 /100 WBC (0-0); PLATELET COUNT 250 K/uL (156-360); RBC DIS.WIDTH-CV 16.1 % (11.8-14.6); RBC DIS.WIDTH-SD 55.5 % (39-53)
[2016-08-05 23:28] LABS: UREA NITROGEN (BUN) 74 mg/dL (9-23)
[2016-08-05 23:29] LABS: DIRECT BILIRUBIN 0.1 mg/dL (0.0-0.3)
[2016-08-05 23:30] LABS: LIPASE 14 U/L (1.0-51.0); WHITE BLOOD COUNT 17.5 K/uL (4.1-10.2)
[2016-08-05 23:37] LABS: POTASSIUM 6.1 mEq/L (3.7-5.4); SODIUM 118 mEq/L (136-147)
[2016-08-05] MEDS ORDERED: BACTRIM,SEPT1 TABLET GT (23:40)
[2016-08-05] MEDS ORDERED: FLORASTOR250 MG GT (23:41)
[2016-08-05] MEDS ORDERED: DELTASONE20 M1 GT (23:42)
[2016-08-05] MEDS ORDERED: AMLODIPINE BESYL5 MG GT (23:42)
[2016-08-05] MEDS ORDERED: GENERLAC10 GM/15 M GT (23:43)
[2016-08-05] MEDS ORDERED: CHILDREN'S5 MG/5 M1 GT (23:44)
[2016-08-05] MEDS ORDERED: BISAC-EVAC10 MG PR (23:44)
[2016-08-05] MEDS ORDERED: SENNA8.8 MG/5 M GT (23:47)
[2016-08-05] MEDS ORDERED: CALCIDOL8000 UNIT/ GT (23:49)
[2016-08-05] MEDS ORDERED: GLUCAGEN1 MG IM (23:50)
[2016-08-05] MEDS ORDERED: THORAZINE25 MG GT (23:53)
[2016-08-05] MEDS ORDERED: PROVENTIL,2.5 MG/3 M IH (23:57)
[2016-08-05] MEDS ORDERED: CHLORHEXIDINE473 ML MM (23:57)
[2016-08-06] VITALS (29 sets, daily range): BP systolic 78–158; BP diastolic 52–83
[2016-08-06 03:33] LABS: POTASSIUM 5.2 mEq/L (3.7-5.4); SODIUM 123 mEq/L (136-147)
[2016-08-06 03:35] LABS: GLUCOSE 231 mg/dL (70-99)
[2016-08-06 03:36] LABS: ANION GAP 12 MEQ/L (2-14)
[2016-08-06 03:39] LABS: CHLORIDE 86 mEq/L (99-109); GFR ESTIMATE (CALCULATED) > 59 mL/min/
[2016-08-06 03:40] LABS: UREA NITROGEN (BUN) 78 mg/dL (9-23)
[2016-08-06 06:25] LABS: HEMATOCRIT 20.8 % (36.0-46.0); MCH 31.3 PG (29.0-34.0); MCHC 34.1 G/DL (30.0-36.0); MCV 91.6 FL (83-99); MEAN PLAT.VOLUME 11.3 uM^3 (9.5-12.4); NRBC (%) 0.3 /100 WBC (0-0); PLATELET COUNT 202 K/uL (156-360); RBC DIS.WIDTH-CV 15.1 % (11.8-14.6); RBC DIS.WIDTH-SD 49.3 % (39-53)
[2016-08-06 06:40] LABS: TROP-I INTERPRETATION NEGATIVE; TROPONIN-I 0.03 ng/mL (0.0-0.30)
[2016-08-06 06:54] LABS: METH RESISTANT S AUREUS PCR NEGATIVE (NEGATIVE)
[2016-08-06 06:57] LABS: PROBE CHECK PASS; SPECIMEN PROCESSING CONTROL PASS
[2016-08-06 06:59] LABS: RED BLOOD COUNT 2.27 M/uL (3.80-5.20)
[2016-08-06 07:43] LABS: HEMATOCRIT 22.4 % (36.0-46.0); MCV 91.8 FL (83-99)
[2016-08-06 12:33] LABS: TROP-I INTERPRETATION NEGATIVE; TROPONIN-I 0.04 ng/mL (0.0-0.30)
[2016-08-06 12:40] LABS: ADD MIUA? YES; BILIRUBIN NEGATIVE; BLOOD NEGATIVE; COLOR STRAW ((YELLOW)); GLUCOSE (STRIP) NEGATIVE; KETONES NEGATIVE; LEUKOCYTES MODERATE; NITRITE NEGATIVE; PROTEIN (STRIP) NEGATIVE; UROBILINOGEN 0.2 MG/DL (0.2-1.0)
[2016-08-06 12:50] LABS: BACTERIA 3+ /HPF; EPITHELIAL CELLS NONE SEEN /HPF; MUCUS NONE SEEN /LPF; RED BLOOD CELLS 0-5 /HPF (0-5)
[2016-08-06 13:30] LABS: UR CREATININE CONCENTRATION 4.9 MG/DL
[2016-08-06 17:03] LABS: HEMATOCRIT 26.9 % (36.0-46.0)
[2016-08-06 17:23] LABS: TROP-I INTERPRETATION NEGATIVE; TROPONIN-I 0.07 ng/mL (0.0-0.30)
[2016-08-06 17:28] LABS: ANION GAP 10 MEQ/L (2-14); CHLORIDE 101 MEQ/L (99-109); MAGNESIUM 2.1 mg/dl (1.3-2.7); SAMPLE HEMOLYSIS CHECK 0; SAMPLE ICTERIC CHECK 0; SAMPLE LIPEMIA CHECK 0
[2016-08-06 17:31] LABS: POTASSIUM 3.3 MEQ/L (3.7-5.4); SODIUM 140 MEQ/L (136-147)
[2016-08-06 17:34] LABS: GFR ESTIMATE (CALCULATED) > 59 mL/min/; UREA NITROGEN (BUN) 67 mg/dL (9-23)
[2016-08-06 17:42] LABS: GLUCOSE 77 mg/dL (70-99)
[2016-08-06 21:04] LABS: HEMATOCRIT 20.8 % (36.0-46.0); MCV 91.6 FL (83-99)
[2016-08-07] VITALS (20 sets, daily range): BP systolic 91–154; BP diastolic 47–69
[2016-08-07 01:34] LABS: HEMATOCRIT 27.8 % (36.0-46.0); MCV 90.6 FL (83-99)
[2016-08-07 05:32] LABS: POINT-OF-CARE METER ID UU14162636; POINT-OF-CARE USER ID PHATLC
[2016-08-07 05:57] LABS: EOSINOPHIL (%) 0.2 % (0-5); HEMATOCRIT 27.6 % (36.0-46.0); IMMATURE GRANULOCYTE (%) 1.4 % (0.0-0.7); IMMATURE GRANULOCYTE COUNT 0.2 K/uL; INSTRUMENT ABS NEUTROPHIL CT 15.1 K/uL; LYMPHOCYTE COUNT 1.1 K/uL (1.0-2.8); MCH 30.9 PG (29.0-34.0); MCHC 33.3 G/DL (30.0-36.0); MCV 92.6 FL (83-99); MEAN PLAT.VOLUME 10.9 uM^3 (9.5-12.4); MONOCYTE (%) 3.5 % (3-12); MONOCYTE COUNT 0.6 K/uL (0-0.8); NEUTROPHIL (%) 88.3 % (45-76); NEUTROPHIL COUNT 15.1 K/uL (1.8-6.4); NRBC (%) 0.3 /100 WBC (0-0); PLATELET COUNT 206 K/uL (156-360); RBC DIS.WIDTH-CV 17.6 % (11.8-14.6); RBC DIS.WIDTH-SD 56.3 % (39-53)
[2016-08-07 06:23] LABS: ALKALINE PHOSPHATASE 72 IU/L (3-129); ANION GAP 12 MEQ/L (2-14); CHLORIDE 109 MEQ/L (99-109); GFR ESTIMATE (CALCULATED) > 59 mL/min/; POTASSIUM 3.8 MEQ/L (3.7-5.4); SAMPLE HEMOLYSIS CHECK 0; SAMPLE ICTERIC CHECK 0; SAMPLE LIPEMIA CHECK 0; SODIUM 143 MEQ/L (136-147); TOTAL BILIRUBIN 0.3 MG/DL (0.0-1.0); UREA NITROGEN (BUN) 49 mg/dL (9-23); URIC ACID 6.5 mg/dL (3.1-9.2)
[2016-08-07 06:25] LABS: RED BLOOD COUNT 2.98 M/uL (3.80-5.20)
[2016-08-07 06:29] LABS: GLUCOSE 162 mg/dL (70-99)
[2016-08-07 15:25] LABS: HEMATOCRIT 32.2 % (36.0-46.0)
[2016-08-07 15:59] LABS: POINT-OF-CARE METER ID UU13113731
[2016-08-07 16:13] LABS: MCV 98.2 FL (83-99)
[2016-08-07 18:18] LABS: POINT-OF-CARE METER ID UU13113731
[2016-08-07 20:41] LABS: HEMATOCRIT 32.8 % (36.0-46.0); MCV 98.5 FL (83-99)
[2016-08-08] VITALS (16 sets, daily range): BP systolic 108–154; BP diastolic 49–61
[2016-08-08 00:05] LABS: POINT-OF-CARE METER ID UU13113731
[2016-08-08 05:14] LABS: POINT-OF-CARE METER ID UU13113803
[2016-08-08 06:23] LABS: ANION GAP 25 MEQ/L (2-14); CHLORIDE 111 MEQ/L (99-109); GFR ESTIMATE (CALCULATED) > 59 mL/min/; GLUCOSE 287 mg/dL (70-99); POTASSIUM 3.5 MEQ/L (3.7-5.4); SAMPLE HEMOLYSIS CHECK 0; SAMPLE ICTERIC CHECK 0; SAMPLE LIPEMIA CHECK 0; SODIUM 151 MEQ/L (136-147); UREA NITROGEN (BUN) 49 mg/dL (9-23)
[2016-08-08 11:12] LABS: BASE EXCESS -2.4 mEq/L (-3 to +3); BICARBONATE 22.5 mEq/L (22-26); CARBOXY HGB 1.6 % (0-5); COMMENTS - BLOOD GASES NEG A+C+; DEVICE VENT; FI02 40 %; MECHANICAL RATE 22 resp/min; METHEMOGLOBIN 1.5 % (0-1.5); MODE AC; PCO2 38 mm Hg (35-45); PO2 94 mm Hg (80-100); SITE LR; pH 7.38 (7.35-7.45)
[2016-08-08 11:13] LABS: PEEP 5 CM/H20; TIDAL VOLUME 450 ML; TOTAL RESP RATE 22 resp/min
[2016-08-08 12:26] LABS: POINT-OF-CARE METER ID UU13113803
[2016-08-08 13:20] LABS: ADD MIUA? YES; BILIRUBIN NEGATIVE; BLOOD NEGATIVE; COLOR YELLOW ((YELLOW)); GLUCOSE (STRIP) 50; KETONES 20; LEUKOCYTES NEGATIVE; NITRITE NEGATIVE; PROTEIN (STRIP) 30; SPECIFIC GRAVITY 1.019 (1.000-1.030); UROBILINOGEN 0.2 MG/DL (0.2-1.0)
[2016-08-08 13:31] LABS: BACTERIA RARE /HPF; EPITHELIAL CELLS RARE /HPF; MUCUS TRACE /LPF; RED BLOOD CELLS 20-30 /HPF (0-5); WHITE BLOOD CELLS 0-5 /HPF (0-5)
[2016-08-08 13:33] LABS: ANION GAP 15 MEQ/L (2-14); CHLORIDE 116 MEQ/L (99-109); GFR ESTIMATE (CALCULATED) > 59 mL/min/; GLUCOSE 248 mg/dL (70-99); MAGNESIUM 2.3 mg/dl (1.3-2.7); POTASSIUM 3.9 MEQ/L (3.7-5.4); SAMPLE HEMOLYSIS CHECK 0; SAMPLE ICTERIC CHECK 0; SAMPLE LIPEMIA CHECK 0; SODIUM 152 MEQ/L (136-147); UREA NITROGEN (BUN) 46 mg/dL (9-23)
[2016-08-08 18:08] LABS: POINT-OF-CARE METER ID UU13113731
[2016-08-08 18:18] LABS: ANION GAP 15 MEQ/L (2-14); CHLORIDE 116 MEQ/L (99-109); GFR ESTIMATE (CALCULATED) > 59 mL/min/; GLUCOSE 338 mg/dL (70-99); POTASSIUM 3.5 MEQ/L (3.7-5.4); SAMPLE HEMOLYSIS CHECK 0; SAMPLE ICTERIC CHECK 0; SAMPLE LIPEMIA CHECK 0; SODIUM 151 MEQ/L (136-147); UREA NITROGEN (BUN) 43 mg/dL (9-23)
[2016-08-08 23:59] LABS: POTASSIUM 3.2 mEq/L (3.7-5.4); SODIUM 151 mEq/L (136-147)
[2016-08-09] VITALS (10 sets, daily range): BP systolic 121–140; BP diastolic 55–65
[2016-08-09] LABS: GLUCOSE 291 mg/dL (70-99)
[2016-08-09 00:02] LABS: ANION GAP 11 MEQ/L (2-14)
[2016-08-09 00:04] LABS: GFR ESTIMATE (CALCULATED) > 59 mL/min/
[2016-08-09 00:05] LABS: UREA NITROGEN (BUN) 41 mg/dL (9-23)
[2016-08-09 00:15] LABS: POINT-OF-CARE METER ID UU13113731
[2016-08-09 00:26] LABS: CHLORIDE 118 mEq/L (99-109)
[2016-08-09 05:56] LABS: POINT-OF-CARE METER ID UU14174217
[2016-08-09 06:37] LABS: MCH 30.8 PG (29.0-34.0); MCHC 31.5 G/DL (30.0-36.0); MCV 97.7 FL (83-99); MEAN PLAT.VOLUME 10.5 uM^3 (9.5-12.4); PLATELET COUNT 230 K/uL (156-360); RBC DIS.WIDTH-CV 19.4 % (11.8-14.6); RED BLOOD COUNT 2.66 M/uL (3.80-5.20); WHITE BLOOD COUNT 12.6 K/uL (4.1-10.2)
[2016-08-09 06:47] LABS: ANION GAP 11 MEQ/L (2-14); CHLORIDE 113 MEQ/L (99-109); GFR ESTIMATE (CALCULATED) > 59 mL/min/; GLUCOSE 227 mg/dL (70-99); POTASSIUM 3.1 MEQ/L (3.7-5.4); SAMPLE HEMOLYSIS CHECK 0; SAMPLE ICTERIC CHECK 0; SAMPLE LIPEMIA CHECK 0; SODIUM 147 MEQ/L (136-147); UREA NITROGEN (BUN) 37 mg/dL (9-23)
[2016-08-09 11:21] LABS: POINT-OF-CARE METER ID UU13113803
[2016-08-09 16:31] LABS: ANION GAP 8 MEQ/L (2-14); CHLORIDE 113 MEQ/L (99-109); GFR ESTIMATE (CALCULATED) > 59 mL/min/; GLUCOSE 320 mg/dL (70-99); POTASSIUM 3.9 MEQ/L (3.7-5.4); SAMPLE HEMOLYSIS CHECK 0; SAMPLE ICTERIC CHECK 0; SAMPLE LIPEMIA CHECK 0; SODIUM 145 MEQ/L (136-147); UREA NITROGEN (BUN) 34 mg/dL (9-23)
[2016-08-09 17:54] LABS: POINT-OF-CARE METER ID UU13113803
[2016-08-09 22:10] LABS: POINT-OF-CARE METER ID UU13113803
[2016-08-10] VITALS (9 sets, daily range): BP systolic 89–119; BP diastolic 46–60
[2016-08-10 04:45] LABS: HEMATOCRIT 27.4 % (36.0-46.0); MCH 30.4 PG (29.0-34.0); MCV 97.9 FL (83-99); MEAN PLAT.VOLUME 10.7 uM^3 (9.5-12.4); PLATELET COUNT 211 K/uL (156-360); RBC DIS.WIDTH-CV 19.1 % (11.8-14.6); RBC DIS.WIDTH-SD 66.4 % (39-53); WHITE BLOOD COUNT 11.4 K/uL (4.1-10.2)
[2016-08-10 04:55] LABS: CHLORIDE 112 mEq/L (99-109); POTASSIUM 3.9 mEq/L (3.7-5.4); SODIUM 142 mEq/L (136-147)
[2016-08-10 04:57] LABS: GLUCOSE 246 mg/dL (70-99)
[2016-08-10 04:58] LABS: ANION GAP 9 MEQ/L (2-14)
[2016-08-10 05:00] LABS: GFR ESTIMATE (CALCULATED) > 59 mL/min/
[2016-08-10 05:01] LABS: UREA NITROGEN (BUN) 34 mg/dL (9-23)
[2016-08-10 12:38] LABS: POINT-OF-CARE METER ID UU14174217
[2016-08-10 15:53] LABS: ANION GAP 8 MEQ/L (2-14); CHLORIDE 109 MEQ/L (99-109); POTASSIUM 4.1 MEQ/L (3.7-5.4); SAMPLE HEMOLYSIS CHECK 0; SAMPLE ICTERIC CHECK 0; SAMPLE LIPEMIA CHECK 0; SODIUM 138 MEQ/L (136-147)
[2016-08-10 15:59] LABS: GFR ESTIMATE (CALCULATED) > 59 mL/min/; GLUCOSE 220 mg/dL (70-99); UREA NITROGEN (BUN) 34 mg/dL (9-23)
[2016-08-10 17:46] LABS: POINT-OF-CARE METER ID UU14174217
[2016-08-11] VITALS (9 sets, daily range): BP systolic 95–123; BP diastolic 45–60
[2016-08-11 00:45] LABS: POINT-OF-CARE METER ID UU14174217
[2016-08-11 05:48] LABS: POINT-OF-CARE METER ID UU13113803
[2016-08-11 06:52] LABS: ANION GAP 8 MEQ/L (2-14); CHLORIDE 109 MEQ/L (99-109); GFR ESTIMATE (CALCULATED) > 59 mL/min/; POTASSIUM 4.2 MEQ/L (3.7-5.4); SAMPLE HEMOLYSIS CHECK 0; SAMPLE ICTERIC CHECK 0; SAMPLE LIPEMIA CHECK 0; SODIUM 139 MEQ/L (136-147); SODIUM 140 MEQ/L (136-147); UREA NITROGEN (BUN) 40 mg/dL (9-23)
[2016-08-11 07:24] LABS: HEMATOCRIT 24.8 % (36.0-46.0); MCH 31.2 PG (29.0-34.0); MCHC 31.5 G/DL (30.0-36.0); MCV 99.2 FL (83-99); PLATELET COUNT 172 K/uL (156-360); RBC DIS.WIDTH-CV 18.6 % (11.8-14.6); RBC DIS.WIDTH-SD 65.9 % (39-53); WHITE BLOOD COUNT 9.3 K/uL (4.1-10.2)
[2016-08-11 08:12] LABS: GLUCOSE 114 mg/dL (70-99); GLUCOSE 115 mg/dL (70-99)
[2016-08-11 12:37] LABS: POINT-OF-CARE METER ID UU13113803
[2016-08-11 16:01] LABS: ANION GAP 5 MEQ/L (2-14); CHLORIDE 108 MEQ/L (99-109); GFR ESTIMATE (CALCULATED) > 59 mL/min/; GLUCOSE 149 mg/dL (70-99); SAMPLE HEMOLYSIS CHECK 0; SAMPLE ICTERIC CHECK 0; SAMPLE LIPEMIA CHECK 0; SODIUM 138 MEQ/L (136-147); UREA NITROGEN (BUN) 42 mg/dL (9-23)
[2016-08-11 18:22] LABS: POINT-OF-CARE METER ID UU14162636
[2016-08-12] VITALS: BP 107/52
[2016-08-12 01:13] LABS: POINT-OF-CARE METER ID UU13113731
[2016-08-12 04:00] VITALS: BP 106/45
[2016-08-12 05:28] LABS: POINT-OF-CARE METER ID UU14162636
[2016-08-12 06:12] LABS: ANION GAP 6 MEQ/L (2-14); CHLORIDE 109 MEQ/L (99-109); GFR ESTIMATE (CALCULATED) > 59 mL/min/; GLUCOSE 115 mg/dL (70-99); POTASSIUM 4.3 MEQ/L (3.7-5.4); SAMPLE HEMOLYSIS CHECK 0; SAMPLE ICTERIC CHECK 0; SAMPLE LIPEMIA CHECK 0; SODIUM 140 MEQ/L (136-147); UREA NITROGEN (BUN) 41 mg/dL (9-23)
[2016-08-12 07:33] LABS: HEMATOCRIT 23.5 % (36.0-46.0); MCH 31.2 PG (29.0-34.0); MCHC 31.1 G/DL (30.0-36.0); MCV 100.4 FL (83-99); MEAN PLAT.VOLUME 11.5 uM^3 (9.5-12.4); PLATELET COUNT 164 K/uL (156-360); RBC DIS.WIDTH-CV 18.6 % (11.8-14.6); RBC DIS.WIDTH-SD 65.1 % (39-53); RED BLOOD COUNT 2.34 M/uL (3.80-5.20); WHITE BLOOD COUNT 7.3 K/uL (4.1-10.2)
[2016-08-12 08:00] VITALS: BP 133/57
[2016-08-12 12:00] VITALS: BP 104/47
[2016-08-12 12:30] LABS: POINT-OF-CARE METER ID UU14162636; POINT-OF-CARE USER ID 606021424
[2016-08-12 15:11] LABS: HEMATOCRIT 22.5 % (36.0-46.0); MCV 100.4 FL (83-99)
[2016-08-12 16:00] VITALS: BP 109/56
[2016-08-12 17:41] LABS: POINT-OF-CARE METER ID UU13113731; POINT-OF-CARE USER ID 606021424
[2016-08-12 20:00] VITALS: BP 94/45
[2016-08-12 23:01] LABS: MCV 101.3 FL (83-99)
[2016-08-13] VITALS (7 sets, daily range): BP systolic 90–113; BP diastolic 48–55
[2016-08-13 00:01] LABS: POINT-OF-CARE METER ID UU14162636
[2016-08-13 04:33] LABS: HEMATOCRIT 24.1 % (36.0-46.0); MCH 31.1 PG (29.0-34.0); MCHC 31.1 G/DL (30.0-36.0); MEAN PLAT.VOLUME 11.4 uM^3 (9.5-12.4); PLATELET COUNT 197 K/uL (156-360); RBC DIS.WIDTH-CV 18.6 % (11.8-14.6); RBC DIS.WIDTH-SD 66.1 % (39-53); RED BLOOD COUNT 2.41 M/uL (3.80-5.20)
[2016-08-13 04:43] LABS: CHLORIDE 110 mEq/L (99-109); POTASSIUM 4.9 mEq/L (3.7-5.4); SODIUM 140 mEq/L (136-147)
[2016-08-13 04:45] LABS: GLUCOSE 148 mg/dL (70-99)
[2016-08-13 04:46] LABS: ANION GAP 8 MEQ/L (2-14)
[2016-08-13 04:49] LABS: GFR ESTIMATE (CALCULATED) > 59 mL/min/
[2016-08-13 04:50] LABS: UREA NITROGEN (BUN) 39 mg/dL (9-23)
[2016-08-13 19:51] LABS: HEMATOCRIT 22.5 % (36.0-46.0); MCV 101.4 FL (83-99)
[2016-08-14] VITALS (15 sets, daily range): BP systolic 86–160; BP diastolic 48–118
[2016-08-14 05:28] LABS: POINT-OF-CARE METER ID UU14174217
[2016-08-14 06:29] LABS: HEMATOCRIT 24.8 % (36.0-46.0); MCH 31.1 PG (29.0-34.0); MCHC 30.2 G/DL (30.0-36.0); MCV 102.9 FL (83-99); MEAN PLAT.VOLUME 11.7 uM^3 (9.5-12.4); PLATELET COUNT 241 K/uL (156-360); RED BLOOD COUNT 2.41 M/uL (3.80-5.20); WHITE BLOOD COUNT 6.6 K/uL (4.1-10.2)
[2016-08-14 06:52] LABS: ANION GAP 5 MEQ/L (2-14); CHLORIDE 106 MEQ/L (99-109); GFR ESTIMATE (CALCULATED) > 59 mL/min/; POTASSIUM 5.1 MEQ/L (3.7-5.4); SAMPLE HEMOLYSIS CHECK 0; SAMPLE ICTERIC CHECK 0; SAMPLE LIPEMIA CHECK 0; SODIUM 139 MEQ/L (136-147); UREA NITROGEN (BUN) 39 mg/dL (9-23)
[2016-08-14 06:57] LABS: GLUCOSE 297 mg/dL (70-99)
[2016-08-14 12:34] LABS: POINT-OF-CARE METER ID UU14174217
[2016-08-14] MEDS ORDERED: CORDARONE200 MG GT (13:09)
[2016-08-14] MEDS ORDERED: CEFEPIME HCL2 GM IM (13:10)
[2016-08-14 15:05] LABS: HEMATOCRIT 33.3 % (36.0-46.0); MCV 95.7 FL (83-99)
[2016-08-14] MEDS ORDERED: CEFEPIME HCL2 GM IV (15:07)
== END 2016-08-14 16:52 | DRG 4 ==
LOC: EME → EDBD 22:00 → EME 22:00 → EDOF 08-06 03:39 → 4WEST 08-06 03:39
PROVIDERS: Emergency Medicine; Family Medicine; Hospitalist; Internal Medicine; Internal Medicine Gastroenterology; Internal Medicine Nephrology; Student in an Organized Health Care Education/Training Program
DX: D62 Acute posthemorrhagic anemia (principal); K92.2 Gastrointestinal hemorrhage, unspecified; J95.851 Ventilator associated pneumonia; J96.01 Acute respiratory failure with hypoxia; Z99.11 Dependence on respirator [ventilator] status; A41.9 Sepsis, unspecified organism; J96.10 Chronic respiratory failure, unspecified whether with hypoxia or hypercapnia; Z93.0 Tracheostomy status; N17.9 Acute kidney failure, unspecified; G93.41 Metabolic encephalopathy; E87.1 Hypo-osmolality and hyponatremia; E87.2 Acidosis; E87.0 Hyperosmolality and hypernatremia; I48.92 Unspecified atrial flutter; J44.9 Chronic obstructive pulmonary disease, unspecified; K92.1 Melena; G82.20 Paraplegia, unspecified; F20.0 Paranoid schizophrenia; E87.5 Hyperkalemia; E11.22 Type 2 diabetes mellitus with diabetic chronic kidney disease; D72.829 Elevated white blood cell count, unspecified; R03.1 Nonspecific low blood-pressure reading; I48.0 Paroxysmal atrial fibrillation; F41.9 Anxiety disorder, unspecified; F31.9 Bipolar disorder, unspecified; E03.9 Hypothyroidism, unspecified; L30.9 Dermatitis, unspecified; E66.9 Obesity, unspecified; J98.19 Other pulmonary collapse; K63.5 Polyp of colon; I12.9 Hypertensive chronic kidney disease with stage 1 through stage 4 chronic kidney disease, or unspecified chronic kidney disease; N18.3 Chronic kidney disease, stage 3 (moderate); B96.5 Pseudomonas (aeruginosa) (mallei) (pseudomallei) as the cause of diseases classified elsewhere; Z93.1 Gastrostomy status; Z79.4 Long term (current) use of insulin; Z90.49 Acquired absence of other specified parts of digestive tract
CPT/HCPCS: 36600; 71010; 74177; 80048; 80048 91; 80053; 80069; 80076; 81003; 82140; 82570; 82803; 82948; 83605; 83690; 83735; 83935; 84100; 84156; 84300; 84443; 84484; 84550; 85014; 85018; 85025; 85027; 85610; 86850; 86900; 86901; 86920; 87040; 87070; 87077; 87081; 87186; 87205; 87641; 93005; 93971; 94002; 94003; 94640 76; 94644; 94667; 94668; 94760; 99202; 99281; 99285; C9113; J0692; J0696; J1160; J1815; J1940; J2543; J3370; J3480; J7030; J7050; J7070; P9016; Q0161

== ENCOUNTER 2016-09-20 17:09 | Inpatient (IN) | payer OTHER ==
[~2016-09-20] VITALS: Ht 167.6 cm; Wt 72.7 kg
[~2016-09-20 17:09] MED LIST changes: +BACTRIM,SEPT1 TABLET GT; +CEFEPIME HCL2 GM IV; +CORDARONE200 MG GT; +DELTASONE20 M1 GT
[2016-09-20] MEDS ORDERED: ORAZINC220 MG GT (17:30)
[2016-09-20] MEDS ORDERED: JUVEN PACKET1 EACH GT (17:30)
[2016-09-20] MEDS ORDERED: AMIODARONE HCL200 MG GT (17:32)
[2016-09-20 17:49] LABS: BASE EXCESS 19.9 mEq/L (-3 to +3); BICARBONATE 48.6 mEq/L (22-26); CARBOXY HGB 1.9 % (0-5); METHEMOGLOBIN 1.3 % (0-1.5); PO2 240 mm Hg (80-100); pH 7.36 (7.35-7.45)
[2016-09-20 17:50] LABS: COMMENTS - BLOOD GASES A+C+; DEVICE VENT; O2 FLOW 70 L/MIN; PCO2 86 mm Hg (35-45); SITE RR
[2016-09-20 17:51] LABS: FI02 70 %; MODE PC; PEEP 5 CM/H20; PRESSURE CONTROL VENTILATION 40 CM H20; TOTAL RESP RATE 20 resp/min
[2016-09-20 18:36] LABS: HEMATOCRIT 29.6 % (36.0-46.0); MCH 29.7 PG (29.0-34.0); MCHC 30.4 G/DL (30.0-36.0); MCV 97.7 FL (83-99); MEAN PLAT.VOLUME 12.1 uM^3 (9.5-12.4); NRBC (%) 0.4 /100 WBC (0-0); PLATELET COUNT 189 K/uL (156-360); RBC DIS.WIDTH-CV 20.2 % (11.8-14.6); RBC DIS.WIDTH-SD 72.4 % (39-53); RED BLOOD COUNT 3.03 M/uL (3.80-5.20); WHITE BLOOD COUNT 7.5 K/uL (4.1-10.2)
[2016-09-20 18:36] LABS: ADD MIUA? YES; BILIRUBIN NEGATIVE; BLOOD NEGATIVE; COLOR YELLOW ((YELLOW)); GLUCOSE (STRIP) NEGATIVE; KETONES NEGATIVE; LEUKOCYTES LARGE; NITRITE POSITIVE; PROTEIN (STRIP) 100; SPECIFIC GRAVITY 1.014 (1.000-1.030); UROBILINOGEN 0.2 MG/DL (0.2-1.0)
[2016-09-20 18:47] LABS: CHLORIDE 88 mEq/L (99-109); INTER. NORMALIZED RATIO 1.1; POTASSIUM 5.1 mEq/L (3.7-5.4); PROTHROMBIN TIME 10.9 (9.2-11.2); PTT 31.7 (25-32); SODIUM 136 mEq/L (136-147)
[2016-09-20 18:48] LABS: MAGNESIUM 2.1 mg/dL (1.3-2.7)
[2016-09-20 18:49] LABS: GLUCOSE 139 mg/dL (70-99)
[2016-09-20 18:50] LABS: ANION GAP 8 MEQ/L (2-14)
[2016-09-20 18:53] LABS: GFR ESTIMATE (CALCULATED) > 59 mL/min/
[2016-09-20 18:54] LABS: UREA NITROGEN (BUN) 59 mg/dL (9-23)
[2016-09-20 18:58] LABS: TROP-I INTERPRETATION NEGATIVE; TROPONIN-I < 0.01 ng/mL (0.0-0.30)
[2016-09-20 19:02] LABS: BACTERIA 3+ /HPF; EPITHELIAL CELLS NONE SEEN /HPF; MUCUS NONE SEEN /LPF; RED BLOOD CELLS 0-5 /HPF (0-5); UCUL ADDED? YES; WHITE BLOOD CELLS TNTC /HPF (0-5)
[2016-09-20 19:49] LABS: ANISOCYTOSIS 1+; EOSINOPHIL ABS CT 0; INSTRUMENT ABS NEUTROPHIL CT 6.5 K/uL; LYMPHOCYTES 6.9 % (15.0-45.0); MACROCYTES 1+; PLAT.SUFFICIENCY DECREASED; POLYCHROMASIA 1+; SEG.NEUTROPHILS 86.1 % (46.0-76.0); STOMATOCYTES 1+
[2016-09-20 20:46] LABS: BASE EXCESS 21.6 mEq/L (-3 to +3); BICARBONATE 47.7 mEq/L (22-26); CARBOXY HGB 3.7 % (0-5); METHEMOGLOBIN 0.3 % (0-1.5)
[2016-09-20 20:47] LABS: COMMENTS - BLOOD GASES C+; DEVICE 840; FI02 50 %; MECHANICAL RATE 20 resp/min; MODE AC/PC; PCO2 64 mm Hg (35-45); PO2 85 mm Hg (80-100); PRESSURE CONTROL VENTILATION 40 CM H20; SITE RR; TOTAL RESP RATE 20 resp/min; pH 7.48 (7.35-7.45)
[2016-09-20 20:48] LABS: PEEP 5 CM/H20
[2016-09-20 23:55] VITALS: BP 101/61
[2016-09-21] VITALS (8 sets, daily range): BP systolic 94–142; BP diastolic 39–61
[2016-09-21 01:18] LABS: METH RESISTANT S AUREUS PCR POSITIVE (NEGATIVE)
[2016-09-21 01:25] LABS: PROBE CHECK PASS
[2016-09-21 01:27] LABS: POINT-OF-CARE METER ID UU14174217
[2016-09-21 05:31] LABS: EOSINOPHIL (%) 0.6 % (0-5); EOSINOPHIL COUNT 0.1 K/uL (0-0.3); HEMATOCRIT 27.8 % (36.0-46.0); IMMATURE GRANULOCYTE (%) 1.1 % (0.0-0.7); IMMATURE GRANULOCYTE COUNT 0.1 K/uL; LYMPHOCYTE COUNT 1.2 K/uL (1.0-2.8); MCH 30.3 PG (29.0-34.0); MCHC 31.7 G/DL (30.0-36.0); MCV 95.9 FL (83-99); MEAN PLAT.VOLUME 12.2 uM^3 (9.5-12.4); MONOCYTE (%) 8.4 % (3-12); MONOCYTE COUNT 0.7 K/uL (0-0.8); NEUTROPHIL (%) 74.8 % (45-76); NRBC (%) 0.2 /100 WBC (0-0); PLATELET COUNT 208 K/uL (156-360); RBC DIS.WIDTH-CV 20.1 % (11.8-14.6); RBC DIS.WIDTH-SD 70.7 % (39-53); WHITE BLOOD COUNT 8.1 K/uL (4.1-10.2)
[2016-09-21 06:58] LABS: ALKALINE PHOSPHATASE 171 IU/L (3-129); ANION GAP 6 MEQ/L (2-14); CHLORIDE 91 MEQ/L (99-109); GFR ESTIMATE (CALCULATED) > 59 mL/min/; POTASSIUM 4.6 MEQ/L (3.7-5.4); SAMPLE HEMOLYSIS CHECK 0; SAMPLE ICTERIC CHECK 0; SAMPLE LIPEMIA CHECK 0; SODIUM 137 MEQ/L (136-147); TOTAL BILIRUBIN 0.4 MG/DL (0.0-1.0); UREA NITROGEN (BUN) 55 mg/dL (9-23)
[2016-09-21 06:59] LABS: GLUCOSE 39 mg/dL (70-99)
[2016-09-21 13:45] LABS: POINT-OF-CARE METER ID UU13113731
[2016-09-21 18:14] LABS: POINT-OF-CARE METER ID UU13113731; POINT-OF-CARE USER ID 606021424
[2016-09-21 23:44] LABS: POINT-OF-CARE METER ID UU13113731
[2016-09-22] VITALS (8 sets, daily range): BP systolic 102–139; BP diastolic 45–61
[2016-09-22 08:18] LABS: EOSINOPHIL (%) 1.8 % (0-5); EOSINOPHIL COUNT 0.1 K/uL (0-0.3); HEMATOCRIT 30.4 % (36.0-46.0); IMMATURE GRANULOCYTE (%) 2.5 % (0.0-0.7); IMMATURE GRANULOCYTE COUNT 0.2 K/uL; INSTRUMENT ABS NEUTROPHIL CT 4.9 K/uL; LYMPHOCYTE COUNT 1.5 K/uL (1.0-2.8); MCH 29.6 PG (29.0-34.0); MCHC 30.3 G/DL (30.0-36.0); MCV 97.7 FL (83-99); MEAN PLAT.VOLUME 12.3 uM^3 (9.5-12.4); MONOCYTE (%) 6.3 % (3-12); MONOCYTE COUNT 0.5 K/uL (0-0.8); NEUTROPHIL (%) 68.8 % (45-76); NEUTROPHIL COUNT 4.9 K/uL (1.8-6.4); PLATELET COUNT 176 K/uL (156-360); RBC DIS.WIDTH-CV 20.2 % (11.8-14.6); RBC DIS.WIDTH-SD 72.4 % (39-53); RED BLOOD COUNT 3.11 M/uL (3.80-5.20); WHITE BLOOD COUNT 7.2 K/uL (4.1-10.2)
[2016-09-22 08:50] LABS: ANION GAP 10 MEQ/L (2-14); CHLORIDE 88 MEQ/L (99-109); GFR ESTIMATE (CALCULATED) > 59 mL/min/; POTASSIUM 4.2 MEQ/L (3.7-5.4); SAMPLE HEMOLYSIS CHECK 0; SAMPLE ICTERIC CHECK 0; SAMPLE LIPEMIA CHECK 0; SODIUM 131 MEQ/L (136-147); UREA NITROGEN (BUN) 63 mg/dL (9-23)
[2016-09-22 08:52] LABS: GLUCOSE 374 mg/dL (70-99)
[2016-09-22 09:48] LABS: INTERNAL CONTROL VALID? YES
[2016-09-22 10:34] LABS: POINT-OF-CARE METER ID UU14174217
[2016-09-22 13:22] LABS: POINT-OF-CARE METER ID UU13113803
[2016-09-22 18:04] LABS: POINT-OF-CARE METER ID UU13113803
[2016-09-22 21:11] LABS: POINT-OF-CARE METER ID UU13113803
[2016-09-23] VITALS (8 sets, daily range): BP systolic 105–136; BP diastolic 49–60
[2016-09-23 06:36] LABS: POINT-OF-CARE METER ID UU13113803
[2016-09-23 06:42] LABS: EOSINOPHIL (%) 5.6 % (0-5); EOSINOPHIL COUNT 0.4 K/uL (0-0.3); IMMATURE GRANULOCYTE (%) 3.1 % (0.0-0.7); IMMATURE GRANULOCYTE COUNT 0.2 K/uL; INSTRUMENT ABS NEUTROPHIL CT 4.7 K/uL; LYMPHOCYTE COUNT 1.1 K/uL (1.0-2.8); MCH 30.4 PG (29.0-34.0); MCHC 31.1 G/DL (30.0-36.0); MCV 97.9 FL (83-99); MEAN PLAT.VOLUME 12.4 uM^3 (9.5-12.4); MONOCYTE (%) 6.1 % (3-12); MONOCYTE COUNT 0.4 K/uL (0-0.8); NEUTROPHIL COUNT 4.7 K/uL (1.8-6.4); PLATELET COUNT 166 K/uL (156-360); RBC DIS.WIDTH-SD 71.7 % (39-53); RED BLOOD COUNT 2.86 M/uL (3.80-5.20); WHITE BLOOD COUNT 6.7 K/uL (4.1-10.2)
[2016-09-23 07:11] LABS: ANION GAP 8 MEQ/L (2-14); CHLORIDE 95 MEQ/L (99-109); GFR ESTIMATE (CALCULATED) > 59 mL/min/; GLUCOSE 210 mg/dL (70-99); POTASSIUM 4.4 MEQ/L (3.7-5.4); SAMPLE HEMOLYSIS CHECK 0; SAMPLE ICTERIC CHECK 0; SAMPLE LIPEMIA CHECK 0; SODIUM 137 MEQ/L (136-147); UREA NITROGEN (BUN) 57 mg/dL (9-23)
[2016-09-23 11:51] LABS: POINT-OF-CARE METER ID UU13113803
[2016-09-23 16:40] LABS: POINT-OF-CARE METER ID UU13113803
[2016-09-24] VITALS: BP 129/59
[2016-09-24 01:40] LABS: POINT-OF-CARE METER ID UU13113731
[2016-09-24 04:00] VITALS: BP 112/58
[2016-09-24 05:27] LABS: POINT-OF-CARE METER ID UU13113731
[2016-09-24 08:00] VITALS: BP 107/58
[2016-09-24 08:23] LABS: EOSINOPHIL (%) 3.7 % (0-5); EOSINOPHIL COUNT 0.3 K/uL (0-0.3); HEMATOCRIT 28.9 % (36.0-46.0); IMMATURE GRANULOCYTE (%) 1.7 % (0.0-0.7); IMMATURE GRANULOCYTE COUNT 0.1 K/uL; INSTRUMENT ABS NEUTROPHIL CT 6.1 K/uL; MCH 31.4 PG (29.0-34.0); MCHC 31.5 G/DL (30.0-36.0); MCV 99.7 FL (83-99); MEAN PLAT.VOLUME 12.6 uM^3 (9.5-12.4); MONOCYTE (%) 4.8 % (3-12); MONOCYTE COUNT 0.4 K/uL (0-0.8); NEUTROPHIL (%) 77.2 % (45-76); NEUTROPHIL COUNT 6.1 K/uL (1.8-6.4); PLATELET COUNT 154 K/uL (156-360); RBC DIS.WIDTH-CV 19.9 % (11.8-14.6); RBC DIS.WIDTH-SD 72.5 % (39-53); WHITE BLOOD COUNT 7.9 K/uL (4.1-10.2)
[2016-09-24 08:47] LABS: ANION GAP 9 MEQ/L (2-14); CHLORIDE 97 MEQ/L (99-109); GFR ESTIMATE (CALCULATED) > 59 mL/min/; GLUCOSE 219 mg/dL (70-99); POTASSIUM 4.5 MEQ/L (3.7-5.4); SAMPLE HEMOLYSIS CHECK 0; SAMPLE ICTERIC CHECK 0; SAMPLE LIPEMIA CHECK 0; SODIUM 138 MEQ/L (136-147); UREA NITROGEN (BUN) 58 mg/dL (9-23)
[2016-09-24 12:00] VITALS: BP 131/60
[2016-09-24 13:07] LABS: POINT-OF-CARE METER ID UU13113731
[2016-09-24 16:00] VITALS: BP 123/57
[2016-09-24 17:32] LABS: POINT-OF-CARE METER ID UU13113803
[2016-09-24 20:00] VITALS: BP 120/60
[2016-09-25] VITALS: BP 115/55
[2016-09-25 01:02] LABS: POINT-OF-CARE METER ID UU14162636
[2016-09-25 04:00] VITALS: BP 127/62
[2016-09-25 06:16] LABS: POINT-OF-CARE METER ID UU14162636
[2016-09-25 08:45] VITALS: BP 134/58
[2016-09-25 12:00] VITALS: BP 132/62
[2016-09-25 14:00] VITALS: BP 121/61
[2016-09-25] MEDS ORDERED: MAXIPIME2 GM IV (14:10)
== END 2016-09-25 16:10 | DRG 207 ==
LOC: EME 17:09 → 4WEST 21:42 → EDOF 21:42 → 4WEST 23:36
PROVIDERS: Emergency Medicine; Internal Medicine; Student in an Organized Health Care Education/Training Program
PROC: 5A1955Z Respiratory Ventilation, Greater than 96 Consecutive Hours (ICD-10-PCS; principal; 2016-09-20)
DX: J96.01 Acute respiratory failure with hypoxia (principal); R78.81 Bacteremia; G93.41 Metabolic encephalopathy; Z99.11 Dependence on respirator [ventilator] status; J96.11 Chronic respiratory failure with hypoxia; J44.9 Chronic obstructive pulmonary disease, unspecified; D50.0 Iron deficiency anemia secondary to blood loss (chronic); J98.11 Atelectasis; K59.00 Constipation, unspecified; I10 Essential (primary) hypertension; J84.10 Pulmonary fibrosis, unspecified; I48.0 Paroxysmal atrial fibrillation; R13.10 Dysphagia, unspecified; E11.9 Type 2 diabetes mellitus without complications; E66.01 Morbid (severe) obesity due to excess calories; G82.20 Paraplegia, unspecified; F20.9 Schizophrenia, unspecified; F31.9 Bipolar disorder, unspecified; E03.9 Hypothyroidism, unspecified; E78.5 Hyperlipidemia, unspecified; B96.5 Pseudomonas (aeruginosa) (mallei) (pseudomallei) as the cause of diseases classified elsewhere; Y95 Nosocomial condition; Z68.25 Body mass index [BMI] 25.0-25.9, adult; Z93.0 Tracheostomy status; Z79.4 Long term (current) use of insulin; Z93.1 Gastrostomy status; Z90.49 Acquired absence of other specified parts of digestive tract
CPT/HCPCS: 36600; 70450; 71010; 71260; 74177; 80048; 80053; 80202; 81003; 82803; 82948; 83605; 83735; 84484; 85025; 85610; 85730; 87040; 87070; 87076; 87077; 87081; 87086; 87185; 87186; 87205; 87449; 87641; 87801; 93005; 94002; 94003; 94640; 94640 76; 99202; 99281; 99285; J0692; J1815; J1956; J3370; J7050; J7512; Q0161

== ENCOUNTER 2016-10-09 10:36 | Inpatient (IN) | payer OTHER ==
[~2016-10-09] VITALS: Ht 167.6 cm; Wt 77.6 kg
[2016-10-09] VITALS (7 sets, daily range): BP systolic 108–134; BP diastolic 55–77
[~2016-10-09 10:36] MED LIST changes: +AMIODARONE HCL200 MG GT; +JUVEN PACKET1 EACH GT; +MAXIPIME2 GM IV; +ORAZINC220 MG GT
[2016-10-09 11:28] LABS: EOSINOPHIL (%) 2.8 % (0-5); EOSINOPHIL COUNT 0.2 K/uL (0-0.3); HEMATOCRIT 23.1 % (36.0-46.0); IMMATURE GRANULOCYTE (%) 0.7 % (0.0-0.7); IMMATURE GRANULOCYTE COUNT 0.1 K/uL; INSTRUMENT ABS NEUTROPHIL CT 5.6 K/uL; LYMPHOCYTE COUNT 0.9 K/uL (1.0-2.8); MCH 30.2 PG (29.0-34.0); MCHC 31.6 G/DL (30.0-36.0); MONOCYTE (%) 5.1 % (3-12); MONOCYTE COUNT 0.4 K/uL (0-0.8); NEUTROPHIL (%) 78.9 % (45-76); NEUTROPHIL COUNT 5.6 K/uL (1.8-6.4); PLATELET COUNT 114 K/uL (156-360); RBC DIS.WIDTH-CV 18.8 % (11.8-14.6); RBC DIS.WIDTH-SD 65.4 % (39-53); RED BLOOD COUNT 2.42 M/uL (3.80-5.20); WHITE BLOOD COUNT 7.1 K/uL (4.1-10.2)
[2016-10-09 11:30] LABS: MCV 95.5 FL (83-99)
[2016-10-09 11:33] LABS: CHLORIDE 96 mEq/L (99-109); POTASSIUM 4.9 mEq/L (3.7-5.4); SODIUM 138 mEq/L (136-147)
[2016-10-09 11:35] LABS: INTER. NORMALIZED RATIO 1.5; PTT 30.3 (25-32)
[2016-10-09 11:36] LABS: GLUCOSE 184 mg/dL (70-99)
[2016-10-09 11:37] LABS: ANION GAP 7 MEQ/L (2-14)
[2016-10-09 11:38] LABS: TOTAL BILIRUBIN 0.2 mg/dL (0.0-1.0)
[2016-10-09 11:39] LABS: ALKALINE PHOSPHATASE 132 IU/L (3-129); GFR ESTIMATE (CALCULATED) > 59 mL/min/
[2016-10-09 11:41] LABS: UREA NITROGEN (BUN) 66 mg/dL (9-23)
[2016-10-09 22:41] LABS: HEMATOCRIT 29.6 % (36.0-46.0); MCH 29.9 PG (29.0-34.0); MCHC 31.8 G/DL (30.0-36.0); MCV 94.3 FL (83-99); MEAN PLAT.VOLUME 12.9 uM^3 (9.5-12.4); PLATELET COUNT 112 K/uL (156-360); RBC DIS.WIDTH-CV 17.8 % (11.8-14.6); RBC DIS.WIDTH-SD 59.1 % (39-53); WHITE BLOOD COUNT 7.2 K/uL (4.1-10.2)
[2016-10-09 22:42] LABS: RED BLOOD COUNT 3.14 M/uL (3.80-5.20)
[2016-10-09] MEDS ORDERED: INVANZ1 GM IM (23:24)
[2016-10-09] MEDS ORDERED: JUVEN PACKET1 EACH PO (23:25)
[2016-10-09] MEDS ORDERED: LEVO-T150 MCG PO (23:27)
[2016-10-09] MEDS ORDERED: VITAMIN C125 MG GT (23:35)
[2016-10-10] VITALS (20 sets, daily range): BP systolic 114–153; BP diastolic 46–78
[2016-10-10 01:13] LABS: METH RESISTANT S AUREUS PCR POSITIVE (NEGATIVE); PROBE CHECK PASS
[2016-10-10 05:51] LABS: POINT-OF-CARE METER ID UU13113731
[2016-10-10 06:29] LABS: HEMATOCRIT 28.8 % (36.0-46.0); MCH 30.6 PG (29.0-34.0); MCHC 32.3 G/DL (30.0-36.0); MCV 94.7 FL (83-99); MEAN PLAT.VOLUME 13.2 uM^3 (9.5-12.4); PLATELET COUNT 118 K/uL (156-360); RBC DIS.WIDTH-SD 60.6 % (39-53); RED BLOOD COUNT 3.04 M/uL (3.80-5.20); WHITE BLOOD COUNT 6.2 K/uL (4.1-10.2)
[2016-10-10 06:43] LABS: Estimated Average Glucose 114 mg/dL (70-123); HEMOGLOBIN A1c (GLYCOHEMOGLOB) 5.6 % HGB (Below 5.7)
[2016-10-10 07:00] LABS: ALKALINE PHOSPHATASE 121 IU/L (3-129); ANION GAP 8 MEQ/L (2-14); CHLORIDE 103 MEQ/L (99-109); GFR ESTIMATE (CALCULATED) > 59 mL/min/; GLUCOSE 186 mg/dL (70-99); MAGNESIUM 2.1 mg/dl (1.3-2.7); POTASSIUM 4.5 MEQ/L (3.7-5.4); SAMPLE HEMOLYSIS CHECK 0; SAMPLE ICTERIC CHECK 0; SAMPLE LIPEMIA CHECK 0; SODIUM 143 MEQ/L (136-147); TOTAL BILIRUBIN 0.4 MG/DL (0.0-1.0); UREA NITROGEN (BUN) 45 mg/dL (9-23)
[2016-10-10 12:00] LABS: POINT-OF-CARE METER ID UU13113731
[2016-10-10 12:45] LABS: HEMATOCRIT 29.5 % (36.0-46.0); MCH 30.3 PG (29.0-34.0); MCHC 31.9 G/DL (30.0-36.0); MCV 95.2 FL (83-99); MEAN PLAT.VOLUME 12.9 uM^3 (9.5-12.4); PLATELET COUNT 125 K/uL (156-360); RBC DIS.WIDTH-CV 18.1 % (11.8-14.6); RBC DIS.WIDTH-SD 61.5 % (39-53); WHITE BLOOD COUNT 6.4 K/uL (4.1-10.2)
[2016-10-10 17:51] LABS: POINT-OF-CARE METER ID UU13113731
[2016-10-10 18:32] LABS: HEMATOCRIT 27.8 % (36.0-46.0); MCH 30.9 PG (29.0-34.0); MCV 96.5 FL (83-99); MEAN PLAT.VOLUME 12.8 uM^3 (9.5-12.4); PLATELET COUNT 127 K/uL (156-360); RBC DIS.WIDTH-CV 18.5 % (11.8-14.6); RBC DIS.WIDTH-SD 62.6 % (39-53); RED BLOOD COUNT 2.88 M/uL (3.80-5.20); WHITE BLOOD COUNT 6.2 K/uL (4.1-10.2)
[2016-10-10 23:41] LABS: POINT-OF-CARE METER ID UU13113748
[2016-10-11] VITALS (10 sets, daily range): BP systolic 97–144; BP diastolic 43–76
[2016-10-11 00:42] LABS: HEMATOCRIT 27.5 % (36.0-46.0); MCH 29.7 PG (29.0-34.0); MCHC 30.9 G/DL (30.0-36.0); MCV 96.2 FL (83-99); MEAN PLAT.VOLUME 12.8 uM^3 (9.5-12.4); PLATELET COUNT 132 K/uL (156-360); RBC DIS.WIDTH-CV 18.4 % (11.8-14.6); RBC DIS.WIDTH-SD 63.3 % (39-53); RED BLOOD COUNT 2.86 M/uL (3.80-5.20); WHITE BLOOD COUNT 6.2 K/uL (4.1-10.2)
[2016-10-11 06:08] LABS: HEMATOCRIT 28.9 % (36.0-46.0); MCH 30.7 PG (29.0-34.0); MCHC 31.5 G/DL (30.0-36.0); MCV 97.6 FL (83-99); MEAN PLAT.VOLUME 12.8 uM^3 (9.5-12.4); PLATELET COUNT 125 K/uL (156-360); RBC DIS.WIDTH-CV 18.5 % (11.8-14.6); RBC DIS.WIDTH-SD 64.8 % (39-53); RED BLOOD COUNT 2.96 M/uL (3.80-5.20); WHITE BLOOD COUNT 7.2 K/uL (4.1-10.2)
[2016-10-11 06:30] LABS: ANION GAP 9 MEQ/L (2-14); CHLORIDE 106 MEQ/L (99-109); GFR ESTIMATE (CALCULATED) > 59 mL/min/; GLUCOSE 127 mg/dL (70-99); SAMPLE HEMOLYSIS CHECK 0; SAMPLE ICTERIC CHECK 0; SAMPLE LIPEMIA CHECK 0; SODIUM 142 MEQ/L (136-147); UREA NITROGEN (BUN) 34 mg/dL (9-23)
[2016-10-11 06:36] LABS: INTER. NORMALIZED RATIO 1.2
[2016-10-11 12:16] LABS: POINT-OF-CARE METER ID UU14174217
[2016-10-11 16:41] LABS: POINT-OF-CARE METER ID UU14174217
[2016-10-12] VITALS (8 sets, daily range): BP systolic 108–147; BP diastolic 49–120
[2016-10-12 00:41] LABS: POINT-OF-CARE METER ID UU14174217
[2016-10-12 05:23] LABS: HEMATOCRIT 26.3 % (36.0-46.0); MCH 31.4 PG (29.0-34.0); MCHC 31.6 G/DL (30.0-36.0); MCV 99.6 FL (83-99); MEAN PLAT.VOLUME 12.7 uM^3 (9.5-12.4); PLATELET COUNT 133 K/uL (156-360); RBC DIS.WIDTH-CV 18.1 % (11.8-14.6); RBC DIS.WIDTH-SD 64.8 % (39-53); RED BLOOD COUNT 2.64 M/uL (3.80-5.20); WHITE BLOOD COUNT 6.4 K/uL (4.1-10.2)
[2016-10-12 05:50] LABS: ANION GAP 9 MEQ/L (2-14); CHLORIDE 112 MEQ/L (99-109); GFR ESTIMATE (CALCULATED) > 59 mL/min/; GLUCOSE 134 mg/dL (70-99); POTASSIUM 4.3 MEQ/L (3.7-5.4); SAMPLE HEMOLYSIS CHECK 0; SAMPLE ICTERIC CHECK 0; SAMPLE LIPEMIA CHECK 0; SODIUM 144 MEQ/L (136-147); UREA NITROGEN (BUN) 23 mg/dL (9-23)
[2016-10-12 06:43] LABS: POINT-OF-CARE METER ID UU13113803
[2016-10-12 12:46] LABS: POINT-OF-CARE METER ID UU13113731
[2016-10-12 17:57] LABS: POINT-OF-CARE METER ID UU13113803
[2016-10-12 23:47] LABS: POINT-OF-CARE METER ID UU13113803
[2016-10-13] VITALS: BP 95/43
[2016-10-13 04:00] VITALS: BP 132/49
[2016-10-13 05:37] LABS: ANION GAP 9 MEQ/L (2-14); CHLORIDE 115 MEQ/L (99-109); GFR ESTIMATE (CALCULATED) > 59 mL/min/; GLUCOSE 104 mg/dL (70-99); POTASSIUM 4.8 MEQ/L (3.7-5.4); SAMPLE HEMOLYSIS CHECK 0; SAMPLE ICTERIC CHECK 0; SAMPLE LIPEMIA CHECK 0; SODIUM 146 MEQ/L (136-147); UREA NITROGEN (BUN) 20 mg/dL (9-23)
[2016-10-13 05:45] LABS: POINT-OF-CARE METER ID UU13113748
[2016-10-13 06:41] LABS: EOSINOPHIL (%) 5.3 % (0-5); EOSINOPHIL COUNT 0.3 K/uL (0-0.3); IMMATURE GRANULOCYTE (%) 0.8 % (0.0-0.7); INSTRUMENT ABS NEUTROPHIL CT 3.4 K/uL; LYMPHOCYTE COUNT 1.2 K/uL (1.0-2.8); MCH 31.1 PG (29.0-34.0); MCHC 30.4 G/DL (30.0-36.0); MCV 102.3 FL (83-99); MEAN PLAT.VOLUME 12.7 uM^3 (9.5-12.4); MONOCYTE (%) 5.3 % (3-12); MONOCYTE COUNT 0.3 K/uL (0-0.8); NEUTROPHIL (%) 65.2 % (45-76); NEUTROPHIL COUNT 3.4 K/uL (1.8-6.4); PLATELET COUNT 140 K/uL (156-360); RBC DIS.WIDTH-SD 66.3 % (39-53); RED BLOOD COUNT 2.64 M/uL (3.80-5.20); WHITE BLOOD COUNT 5.3 K/uL (4.1-10.2)
[2016-10-13 08:00] VITALS: BP 125/54
[2016-10-13 12:00] VITALS: BP 113/49
[2016-10-13 12:31] LABS: POINT-OF-CARE METER ID UU14174217
[2016-10-13 16:00] VITALS: BP 126/48
[2016-10-13 17:49] LABS: POINT-OF-CARE METER ID UU14174217
[2016-10-14] VITALS (14 sets, daily range): BP systolic 101–154; BP diastolic 41–80
[2016-10-14 01:17] LABS: POINT-OF-CARE METER ID UU13113803
[2016-10-14 07:28] LABS: POINT-OF-CARE METER ID UU13113803
[2016-10-14 08:58] LABS: HEMATOCRIT 23.4 % (36.0-46.0); MCHC 30.8 G/DL (30.0-36.0); MEAN PLAT.VOLUME 12.2 uM^3 (9.5-12.4); PLATELET COUNT 162 K/uL (156-360); RBC DIS.WIDTH-SD 68.6 % (39-53); RED BLOOD COUNT 2.25 M/uL (3.80-5.20); WHITE BLOOD COUNT 7.7 K/uL (4.1-10.2)
[2016-10-14 09:03] LABS: ANION GAP 10 MEQ/L (2-14); CHLORIDE 115 MEQ/L (99-109); GFR ESTIMATE (CALCULATED) > 59 mL/min/; SAMPLE HEMOLYSIS CHECK 0; SAMPLE ICTERIC CHECK 0; SAMPLE LIPEMIA CHECK 0; SODIUM 144 MEQ/L (136-147); UREA NITROGEN (BUN) 30 mg/dL (9-23)
[2016-10-14 09:08] LABS: GLUCOSE 229 mg/dL (70-99)
[2016-10-14 11:15] LABS: POINT-OF-CARE METER ID UU13113803
[2016-10-14 17:18] LABS: POINT-OF-CARE METER ID UU13113803
[2016-10-14 19:26] LABS: HEMATOCRIT 29.2 % (36.0-46.0)
[2016-10-14 19:36] LABS: MCV 95.7 FL (83-99)
[2016-10-14 23:57] LABS: POINT-OF-CARE METER ID UU13113803
[2016-10-15] VITALS (9 sets, daily range): BP systolic 97–159; BP diastolic 45–74
[2016-10-15 05:44] LABS: POINT-OF-CARE METER ID UU14174217
[2016-10-15 05:59] LABS: HEMATOCRIT 29.1 % (36.0-46.0); MCH 29.9 PG (29.0-34.0); MCHC 31.3 G/DL (30.0-36.0); MCV 95.7 FL (83-99); MEAN PLAT.VOLUME 11.9 uM^3 (9.5-12.4); PLATELET COUNT 145 K/uL (156-360); RBC DIS.WIDTH-SD 60.9 % (39-53); WHITE BLOOD COUNT 6.5 K/uL (4.1-10.2)
[2016-10-15 06:07] LABS: RED BLOOD COUNT 3.04 M/uL (3.80-5.20)
[2016-10-15 06:26] LABS: ANION GAP 5 MEQ/L (2-14); CHLORIDE 116 MEQ/L (99-109); GFR ESTIMATE (CALCULATED) > 59 mL/min/; GLUCOSE 264 mg/dL (70-99); POTASSIUM 4.5 MEQ/L (3.7-5.4); SAMPLE HEMOLYSIS CHECK 0; SAMPLE ICTERIC CHECK 0; SAMPLE LIPEMIA CHECK 0; SODIUM 145 MEQ/L (136-147); UREA NITROGEN (BUN) 41 mg/dL (9-23)
[2016-10-15 12:40] LABS: POINT-OF-CARE METER ID UU14174217
[2016-10-15 17:58] LABS: POINT-OF-CARE METER ID UU13113731
[2016-10-16] VITALS (7 sets, daily range): BP systolic 96–140; BP diastolic 46–72
[2016-10-16 00:42] LABS: POINT-OF-CARE METER ID UU13113731
[2016-10-16 06:43] LABS: MCH 29.7 PG (29.0-34.0); MCHC 30.3 G/DL (30.0-36.0); MCV 97.8 FL (83-99); MEAN PLAT.VOLUME 12.2 uM^3 (9.5-12.4); PLATELET COUNT 146 K/uL (156-360); RBC DIS.WIDTH-CV 17.9 % (11.8-14.6); RBC DIS.WIDTH-SD 63.5 % (39-53); RED BLOOD COUNT 3.17 M/uL (3.80-5.20); WHITE BLOOD COUNT 5.9 K/uL (4.1-10.2)
[2016-10-16 07:00] LABS: ANION GAP 5 MEQ/L (2-14); CHLORIDE 118 MEQ/L (99-109); POTASSIUM 4.7 MEQ/L (3.7-5.4); SAMPLE HEMOLYSIS CHECK 0; SAMPLE ICTERIC CHECK 0; SAMPLE LIPEMIA CHECK 0; SODIUM 146 MEQ/L (136-147)
[2016-10-16 07:05] LABS: GFR ESTIMATE (CALCULATED) > 59 mL/min/; GLUCOSE 204 mg/dL (70-99); UREA NITROGEN (BUN) 44 mg/dL (9-23)
[2016-10-16 12:02] LABS: POINT-OF-CARE METER ID UU13113803
[2016-10-16 18:57] LABS: POINT-OF-CARE METER ID UU13113803
[2016-10-16 22:57] LABS: POINT-OF-CARE METER ID UU13113803
[2016-10-17] VITALS (10 sets, daily range): BP systolic 127–160; BP diastolic 51–72
[2016-10-17 05:25] LABS: HEMATOCRIT 33.2 % (36.0-46.0); MCH 29.7 PG (29.0-34.0); MCHC 29.8 G/DL (30.0-36.0); MCV 99.7 FL (83-99); MEAN PLAT.VOLUME 12.2 uM^3 (9.5-12.4); PLATELET COUNT 144 K/uL (156-360); RBC DIS.WIDTH-CV 17.8 % (11.8-14.6); RBC DIS.WIDTH-SD 63.5 % (39-53); RED BLOOD COUNT 3.33 M/uL (3.80-5.20); WHITE BLOOD COUNT 6.7 K/uL (4.1-10.2)
[2016-10-17 05:36] LABS: POINT-OF-CARE METER ID UU13113731
[2016-10-17 13:03] LABS: POINT-OF-CARE METER ID UU13113803
[2016-10-17 17:19] LABS: POINT-OF-CARE METER ID UU13113803
[2016-10-17 23:54] LABS: POINT-OF-CARE METER ID UU13113748
[2016-10-18] VITALS (12 sets, daily range): BP systolic 130–154; BP diastolic 48–67
[2016-10-18 05:23] LABS: POINT-OF-CARE METER ID UU14162636
[2016-10-18 05:55] LABS: EOSINOPHIL (%) 4.4 % (0-5); EOSINOPHIL COUNT 0.4 K/uL (0-0.3); HEMATOCRIT 29.6 % (36.0-46.0); IMMATURE GRANULOCYTE (%) 1.4 % (0.0-0.7); IMMATURE GRANULOCYTE COUNT 0.1 K/uL; INSTRUMENT ABS NEUTROPHIL CT 6.1 K/uL; LYMPHOCYTE COUNT 1.1 K/uL (1.0-2.8); MCH 30.7 PG (29.0-34.0); MCHC 31.1 G/DL (30.0-36.0); MCV 98.7 FL (83-99); MEAN PLAT.VOLUME 12.4 uM^3 (9.5-12.4); MONOCYTE (%) 4.4 % (3-12); MONOCYTE COUNT 0.4 K/uL (0-0.8); NEUTROPHIL (%) 75.9 % (45-76); NEUTROPHIL COUNT 6.1 K/uL (1.8-6.4); PLATELET COUNT 187 K/uL (156-360); RBC DIS.WIDTH-CV 17.6 % (11.8-14.6); RBC DIS.WIDTH-SD 61.8 % (39-53)
[2016-10-18 06:19] LABS: ANION GAP 5 MEQ/L (2-14); CHLORIDE 109 MEQ/L (99-109); GFR ESTIMATE (CALCULATED) > 59 mL/min/; GLUCOSE 267 mg/dL (70-99); SAMPLE HEMOLYSIS CHECK 0; SAMPLE ICTERIC CHECK 0; SAMPLE LIPEMIA CHECK 0; SODIUM 142 MEQ/L (136-147); UREA NITROGEN (BUN) 48 mg/dL (9-23)
[2016-10-18 12:47] LABS: POINT-OF-CARE METER ID UU14162636
== END 2016-10-18 17:02 | disposition short-term general hospital (02) | DRG 378 ==
LOC: EME 10:36 → EDOF 22:45 → 4WEST 22:45
PROVIDERS: Emergency Medicine; Hospitalist; Internal Medicine; Internal Medicine Gastroenterology
PROC: 30233N1 Transfusion of Nonautologous Red Blood Cells into Peripheral Vein, Percutaneous Approach (ICD-10-PCS; principal; 2016-10-09)
PROC: 5A1955Z Respiratory Ventilation, Greater than 96 Consecutive Hours (ICD-10-PCS; 2016-10-09)
DX: K92.1 Melena (principal); D62 Acute posthemorrhagic anemia; Z75.1 Person awaiting admission to adequate facility elsewhere; J96.11 Chronic respiratory failure with hypoxia; J98.11 Atelectasis; J44.9 Chronic obstructive pulmonary disease, unspecified; E03.9 Hypothyroidism, unspecified; E11.9 Type 2 diabetes mellitus without complications; E78.5 Hyperlipidemia, unspecified; F25.9 Schizoaffective disorder, unspecified; F31.9 Bipolar disorder, unspecified; G20 Parkinson's disease; G35 Multiple sclerosis; I10 Essential (primary) hypertension; I48.0 Paroxysmal atrial fibrillation; I48.92 Unspecified atrial flutter; K27.9 Peptic ulcer, site unspecified, unspecified as acute or chronic, without hemorrhage or perforation; F41.9 Anxiety disorder, unspecified; E66.9 Obesity, unspecified; Z99.11 Dependence on respirator [ventilator] status; Z93.0 Tracheostomy status; Z93.1 Gastrostomy status; Z79.4 Long term (current) use of insulin; Z87.891 Personal history of nicotine dependence; Z88.1 Allergy status to other antibiotic agents; Z68.24 Body mass index [BMI] 24.0-24.9, adult
CPT/HCPCS: 71010; 80048; 80053; 81003; 82272; 82948; 83036; 83605; 83735; 84100; 85014; 85018; 85025; 85027; 85610; 85730; 86900; 86901; 86920; 87077; 87081; 87186; 87641; 94003; 94640; 94640 76; 99202; 99281; 99285; C9113; J1335; J1815; J2405; J7030; J7050; P9016; Q0161

== ENCOUNTER 2016-12-19 09:35 | Inpatient (IN) | payer OTHER ==
[~2016-12-19] VITALS: Ht 157.5 cm; Wt 66.4 kg
[2016-12-19] VITALS (18 sets, daily range): BP systolic 88–175; BP diastolic 48–75
[~2016-12-19 09:35] MED LIST changes: +AMIODARONE HCL100 MG GT; -AMIODARONE HCL200 MG GT; +GLUCAGEN1 M2 IM; +INVANZ1 GM IM; +JUVEN PACKET1 EACH PO; +LEVO-T150 MCG GT; +VITAMIN C125 MG GT; +VITAMIN D2000 UNIT GT; -VITAMIN D31000 UNI2 GT
[2016-12-19 10:43] LABS: INTER. NORMALIZED RATIO 1.1; PROTHROMBIN TIME 12.3 SEC (10.2-12.9)
[2016-12-19 10:47] LABS: CHLORIDE 88 mEq/L (99-109); EOSINOPHIL COUNT 0.1 K/uL (0-0.3); HEMATOCRIT 18.1 % (36.0-46.0); IMMATURE GRANULOCYTE (%) 1.5 % (0.0-0.7); IMMATURE GRANULOCYTE COUNT 0.1 K/uL; INSTRUMENT ABS NEUTROPHIL CT 7.7 K/uL; LYMPHOCYTE COUNT 0.7 K/uL (1.0-2.8); MCHC 31.5 G/DL (30.0-36.0); MCV 101.7 FL (83-99); MEAN PLAT.VOLUME 11.3 uM^3 (9.5-12.4); MONOCYTE (%) 3.5 % (3-12); MONOCYTE COUNT 0.3 K/uL (0-0.8); NEUTROPHIL (%) 86.4 % (45-76); NEUTROPHIL COUNT 7.7 K/uL (1.8-6.4); PLATELET COUNT 209 K/uL (156-360); POTASSIUM 5.7 mEq/L (3.7-5.4); RBC DIS.WIDTH-SD 70.3 % (39-53); RED BLOOD COUNT 1.78 M/uL (3.80-5.20); SODIUM 133 mEq/L (136-147); WHITE BLOOD COUNT 8.9 K/uL (4.1-10.2)
[2016-12-19 10:49] LABS: GLUCOSE 134 mg/dL (70-99)
[2016-12-19 10:50] LABS: ANION GAP 10 MEQ/L (2-14)
[2016-12-19 10:51] LABS: TOTAL BILIRUBIN 0.3 mg/dL (0.0-1.0)
[2016-12-19 10:52] LABS: ALKALINE PHOSPHATASE 156 IU/L (3-129)
[2016-12-19 10:53] LABS: GFR ESTIMATE (CALCULATED) > 59 mL/min/
[2016-12-19 10:54] LABS: UREA NITROGEN (BUN) 41 mg/dL (9-23)
[2016-12-19] MEDS ORDERED: NORVASC5 MG GT (11:43)
[2016-12-19] MEDS ORDERED: CERTAVITE GT (11:47)
[2016-12-19] MEDS ORDERED: OCTREOTIDE SC (11:57)
[2016-12-19] MEDS ORDERED: SERTRALINE HCL50 MG GT (11:59)
[2016-12-19 16:26] LABS: METH RESISTANT S AUREUS PCR POSITIVE (NEGATIVE)
[2016-12-19 16:29] LABS: PROBE CHECK PASS
[2016-12-19 17:53] LABS: IMM.RETIC FRACTION 29.6 % (3-19); RETIC HGB EQUIVALENT 31.7 (28-36); RETICULOCYTE COUNT 11.6 % (0.5-1.8)
[2016-12-19 18:23] LABS: FERRITIN 575 NG/ML (10-291)
[2016-12-19 18:27] LABS: POINT-OF-CARE METER ID UU14208751
[2016-12-19 22:21] LABS: POINT-OF-CARE METER ID UU14208751
[2016-12-20] VITALS (13 sets, daily range): BP systolic 101–161; BP diastolic 57–74
[2016-12-20 00:42] LABS: INTER. NORMALIZED RATIO 1.1; PROTHROMBIN TIME 12.3 SEC (10.2-12.9)
[2016-12-20 00:45] LABS: CHLORIDE 93 mEq/L (99-109); MAGNESIUM 2.7 mg/dL (1.3-2.7); POTASSIUM 4.9 mEq/L (3.7-5.4); PTT 31.3 SEC (25-37); SODIUM 132 mEq/L (136-147)
[2016-12-20 00:46] LABS: HEMATOCRIT 33.1 % (36.0-46.0); HEMATOLOGY COMMENT 1 SMEAR COMPATIBLE; MCH 31.9 PG (29.0-34.0); MCHC 32.6 G/DL (30.0-36.0); MEAN PLAT.VOLUME 11.2 uM^3 (9.5-12.4); NRBC (%) 0.9 /100 WBC (0-0); RBC DIS.WIDTH-SD 57.4 % (39-53); WHITE BLOOD COUNT 15.1 K/uL (4.1-10.2)
[2016-12-20 00:47] LABS: PLATELET COUNT 280 K/uL (156-360); RED BLOOD COUNT 3.39 M/uL (3.80-5.20)
[2016-12-20 00:48] LABS: ANION GAP 11 MEQ/L (2-14); MCV 97.6 FL (83-99)
[2016-12-20 00:51] LABS: ALKALINE PHOSPHATASE 186 IU/L (3-129); GFR ESTIMATE (CALCULATED) > 59 mL/min/
[2016-12-20 00:52] LABS: UREA NITROGEN (BUN) 42 mg/dL (9-23)
[2016-12-20 00:53] LABS: GLUCOSE 203 mg/dL (70-99); TOTAL BILIRUBIN 0.5 mg/dL (0.0-1.0)
[2016-12-20 01:01] LABS: TROP-I INTERPRETATION NEGATIVE; TROPONIN-I < 0.01 ng/mL (0.0-0.30)
[2016-12-20 06:03] LABS: ALKALINE PHOSPHATASE 126 IU/L (3-129); ANION GAP 11 MEQ/L (2-14); CHLORIDE 98 MEQ/L (99-109); GFR ESTIMATE (CALCULATED) > 59 mL/min/; GLUCOSE 211 mg/dL (70-99); POTASSIUM 5.1 MEQ/L (3.7-5.4); SAMPLE HEMOLYSIS CHECK 1; SAMPLE ICTERIC CHECK 0; SAMPLE LIPEMIA CHECK 0; SODIUM 136 MEQ/L (136-147); TOTAL BILIRUBIN 0.5 MG/DL (0.0-1.0); UREA NITROGEN (BUN) 40 mg/dL (9-23)
[2016-12-20 06:47] LABS: POINT-OF-CARE METER ID UU14174217
[2016-12-20 09:34] LABS: HEMATOCRIT 33.3 % (36.0-46.0); MCV 97.7 FL (83-99)
[2016-12-20 17:23] LABS: POINT-OF-CARE METER ID UU14174217
[2016-12-20 20:18] LABS: HEMATOCRIT 32.4 % (36.0-46.0); MCH 31.1 PG (29.0-34.0); MCHC 31.8 G/DL (30.0-36.0); MCV 97.9 FL (83-99); RBC DIS.WIDTH-CV 17.1 % (11.8-14.6); RBC DIS.WIDTH-SD 59.6 % (39-53); RED BLOOD COUNT 3.31 M/uL (3.80-5.20); WHITE BLOOD COUNT 17.3 K/uL (4.1-10.2)
[2016-12-20 21:46] LABS: POINT-OF-CARE METER ID UU14174217
[2016-12-20 22:07] LABS: EOSINOPHIL (%) 0 % (0-5); IMMATURE GRANULOCYTE (%) 1.3 % (0.0-0.7); IMMATURE GRANULOCYTE COUNT 0.2 K/uL; INSTRUMENT ABS NEUTROPHIL CT 16.6 K/uL; LYMPHOCYTE COUNT 0.4 K/uL (1.0-2.8); MEAN PLAT.VOLUME 10.7 uM^3 (9.5-12.4); MONOCYTE (%) 0.6 % (3-12); MONOCYTE COUNT 0.1 K/uL (0-0.8); NEUTROPHIL (%) 95.8 % (45-76); NEUTROPHIL COUNT 16.6 K/uL (1.8-6.4); PLAT.SUFFICIENCY ADEQUATE
[2016-12-20 22:31] LABS: PLATELET COUNT 184 K/uL (156-360)
[2016-12-21] VITALS: BP 124/61
[2016-12-21 04:00] VITALS: BP 185/76
[2016-12-21 06:15] LABS: POINT-OF-CARE METER ID UU14174217
[2016-12-21 09:24] LABS: EOSINOPHIL (%) 0 % (0-5); HEMATOCRIT 31.9 % (36.0-46.0); IMMATURE GRANULOCYTE (%) 0.8 % (0.0-0.7); IMMATURE GRANULOCYTE COUNT 0.1 K/uL; INSTRUMENT ABS NEUTROPHIL CT 9.6 K/uL; LYMPHOCYTE COUNT 0.2 K/uL (1.0-2.8); MCH 31.9 PG (29.0-34.0); MCHC 32.3 G/DL (30.0-36.0); MCV 98.8 FL (83-99); MEAN PLAT.VOLUME 10.8 uM^3 (9.5-12.4); MONOCYTE (%) 1.1 % (3-12); MONOCYTE COUNT 0.1 K/uL (0-0.8); NEUTROPHIL (%) 95.9 % (45-76); NEUTROPHIL COUNT 9.6 K/uL (1.8-6.4); PLATELET COUNT 189 K/uL (156-360); RBC DIS.WIDTH-CV 17.2 % (11.8-14.6); RBC DIS.WIDTH-SD 61.1 % (39-53); RED BLOOD COUNT 3.23 M/uL (3.80-5.20)
[2016-12-21 11:15] LABS: ALKALINE PHOSPHATASE 148 IU/L (3-129); ANION GAP 11 MEQ/L (2-14); CHLORIDE 100 MEQ/L (99-109); GFR ESTIMATE (CALCULATED) > 59 mL/min/; GLUCOSE 282 mg/dL (70-99); MAGNESIUM 2.4 mg/dl (1.3-2.7); POTASSIUM 5.4 MEQ/L (3.7-5.4); SAMPLE HEMOLYSIS CHECK 2; SAMPLE ICTERIC CHECK 0; SAMPLE LIPEMIA CHECK 0; SODIUM 136 MEQ/L (136-147); TOTAL BILIRUBIN 0.4 MG/DL (0.0-1.0); UREA NITROGEN (BUN) 40 mg/dL (9-23)
[2016-12-21 11:18] LABS: TROP-I INTERPRETATION NEGATIVE; TROPONIN-I 0.03 ng/mL (0.0-0.30)
[2016-12-21 12:39] LABS: POINT-OF-CARE METER ID UU14174217
[2016-12-21 17:26] LABS: POINT-OF-CARE METER ID UU14174217
[2016-12-21 19:11] LABS: INTERNAL CONTROL VALID? YES
[2016-12-21 23:48] LABS: POINT-OF-CARE METER ID UU14174217
[2016-12-22] VITALS: BP 124/60
[2016-12-22 02:00] VITALS: BP 145/70
[2016-12-22 04:00] VITALS: BP 151/71
[2016-12-22 05:23] LABS: EOSINOPHIL (%) 0 % (0-5); HEMATOCRIT 33.8 % (36.0-46.0); IMMATURE GRANULOCYTE (%) 1.6 % (0.0-0.7); IMMATURE GRANULOCYTE COUNT 0.1 K/uL; INSTRUMENT ABS NEUTROPHIL CT 5.4 K/uL; LYMPHOCYTE COUNT 0.1 K/uL (1.0-2.8); MCHC 30.8 G/DL (30.0-36.0); MCV 100.9 FL (83-99); MEAN PLAT.VOLUME 10.6 uM^3 (9.5-12.4); MONOCYTE (%) 1.9 % (3-12); MONOCYTE COUNT 0.1 K/uL (0-0.8); NEUTROPHIL (%) 94.8 % (45-76); NEUTROPHIL COUNT 5.4 K/uL (1.8-6.4); PLATELET COUNT 187 K/uL (156-360); RBC DIS.WIDTH-CV 16.9 % (11.8-14.6); RBC DIS.WIDTH-SD 61.8 % (39-53); RED BLOOD COUNT 3.35 M/uL (3.80-5.20); WHITE BLOOD COUNT 5.7 K/uL (4.1-10.2)
[2016-12-22 05:49] LABS: ALKALINE PHOSPHATASE 157 IU/L (3-129); ANION GAP 12 MEQ/L (2-14); CHLORIDE 105 MEQ/L (99-109); GFR ESTIMATE (CALCULATED) > 59 mL/min/; GLUCOSE 322 mg/dL (70-99); POTASSIUM 4.4 MEQ/L (3.7-5.4); SAMPLE HEMOLYSIS CHECK 0; SAMPLE ICTERIC CHECK 0; SAMPLE LIPEMIA CHECK 0; SODIUM 140 MEQ/L (136-147); UREA NITROGEN (BUN) 37 mg/dL (9-23)
[2016-12-22 05:50] LABS: TOTAL BILIRUBIN 0.3 MG/DL (0.0-1.0)
[2016-12-22 06:47] LABS: POINT-OF-CARE METER ID UU14162636
[2016-12-22 11:40] LABS: POINT-OF-CARE METER ID UU14162636
[2016-12-22 12:00] VITALS: BP 161/73
[2016-12-22] MEDS ORDERED: DUONEB 2.5-0.5 M3 ML AEROSOL (13:34)
[2016-12-22] MEDS ORDERED: PREDNISONE20 MG GT (13:35)
[2016-12-22] MEDS ORDERED: LEVEMIR100 UNIT/2 SC (13:36)
[2016-12-22 14:00] VITALS: BP 156/71
== END 2016-12-22 14:30 | disposition designated cancer center or children's hospital (05) | DRG 377 ==
LOC: EME 09:35 → EDOF 11:50 → 4WEST 11:50 → ENRESERV 11:52 → 4WEST 12:34
PROVIDERS: Emergency Medicine; Internal Medicine; Internal Medicine Critical Care Medicine; Specialist
PROC: 30233N1 Transfusion of Nonautologous Red Blood Cells into Peripheral Vein, Percutaneous Approach (ICD-10-PCS; principal; 2016-12-19)
PROC: 3E1F88Z Irrigation of Respiratory Tract using Irrigating Substance, Via Natural or Artificial Opening Endoscopic (ICD-10-PCS; 2016-12-20)
PROC: 5A1945Z Respiratory Ventilation, 24-96 Consecutive Hours (ICD-10-PCS; 2016-12-20)
PROC: 4A033B1 Measurement of Arterial Pressure, Peripheral, Percutaneous Approach (ICD-10-PCS; 2016-12-20)
PROC: 5A12012 Performance of Cardiac Output, Single, Manual (ICD-10-PCS; 2016-12-21)
DX: K92.1 Melena (principal); I46.9 Cardiac arrest, cause unspecified; R57.9 Shock, unspecified; Z99.11 Dependence on respirator [ventilator] status; J96.12 Chronic respiratory failure with hypercapnia; J44.0 Chronic obstructive pulmonary disease with (acute) lower respiratory infection; J44.1 Chronic obstructive pulmonary disease with (acute) exacerbation; E87.1 Hypo-osmolality and hyponatremia; E11.22 Type 2 diabetes mellitus with diabetic chronic kidney disease; E87.5 Hyperkalemia; F25.9 Schizoaffective disorder, unspecified; D62 Acute posthemorrhagic anemia; F20.9 Schizophrenia, unspecified; F41.9 Anxiety disorder, unspecified; M81.0 Age-related osteoporosis without current pathological fracture; N18.3 Chronic kidney disease, stage 3 (moderate); B96.5 Pseudomonas (aeruginosa) (mallei) (pseudomallei) as the cause of diseases classified elsewhere; J84.10 Pulmonary fibrosis, unspecified; J20.9 Acute bronchitis, unspecified; D63.8 Anemia in other chronic diseases classified elsewhere; F31.9 Bipolar disorder, unspecified; Z93.1 Gastrostomy status; Z16.20 Resistance to unspecified antibiotic; I12.9 Hypertensive chronic kidney disease with stage 1 through stage 4 chronic kidney disease, or unspecified chronic kidney disease; D50.0 Iron deficiency anemia secondary to blood loss (chronic); E03.9 Hypothyroidism, unspecified; G20 Parkinson's disease; I25.10 Atherosclerotic heart disease of native coronary artery without angina pectoris; E78.5 Hyperlipidemia, unspecified; R19.00 Intra-abdominal and pelvic swelling, mass and lump, unspecified site; J98.19 Other pulmonary collapse; Z96.0 Presence of urogenital implants; Z87.891 Personal history of nicotine dependence; Z93.0 Tracheostomy status; Z79.4 Long term (current) use of insulin; Z90.49 Acquired absence of other specified parts of digestive tract; Z86.010 Personal history of colon polyps
CPT/HCPCS: 71010; 80053; 82140; 82272; 82607; 82728; 82746; 82948; 83605; 83735; 84100; 84443; 84466; 84484; 85014; 85018; 85025; 85025 91; 85027; 85045; 85610; 85730; 86850; 86900; 86901; 86920; 87040; 87070; 87077; 87081; 87186; 87205; 87641; 93005; 93306; 94002; 94003; 94640; 94640 76; 94667; 94668; 99202; 99281; 99285; C1753; C9113; J1815; J2354; J2543; J2920; J3370; J7030; J7050; J7512; P9016; P9040; Q0161

== ENCOUNTER 2017-01-17 07:12 | Emergency (ER) | payer OTHER ==
[~2017-01-17] VITALS: Ht 154.9 cm; Wt 67.3 kg
[~2017-01-17 07:12] MED LIST changes: +CERTAVITE GT; +OCTREOTIDE SC; +SERTRALINE HCL50 MG GT
[2017-01-17 07:45] LABS: BASE EXCESS 19.6 mEq/L (-3 to +3); BICARBONATE 46.5 mEq/L (22-26); CARBOXY HGB 2.1 % (0-5); COMMENTS - BLOOD GASES A+C+; DEVICE 840; FI02 50 %; MECHANICAL RATE 16 resp/min; METHEMOGLOBIN 1.3 % (0-1.5); MODE AC; PCO2 70 mm Hg (35-45); PO2 97 mm Hg (80-100); SITE RR; TOTAL RESP RATE 16 resp/min; pH 7.43 (7.35-7.45)
[2017-01-17 07:46] LABS: PEEP 5 CM/H20; TIDAL VOLUME 400 ML
[2017-01-17 07:52] LABS: EOSINOPHIL (%) 0.8 % (0-5); EOSINOPHIL COUNT 0.1 K/uL (0-0.3); IMMATURE GRANULOCYTE (%) 2.7 % (0.0-0.7); IMMATURE GRANULOCYTE COUNT 0.3 K/uL; LYMPHOCYTE COUNT 0.4 K/uL (1.0-2.8); MCH 31.5 PG (29.0-34.0); MCHC 30.4 G/DL (30.0-36.0); MCV 103.8 FL (83-99); MEAN PLAT.VOLUME 11.3 uM^3 (9.5-12.4); MONOCYTE (%) 4.1 % (3-12); MONOCYTE COUNT 0.5 K/uL (0-0.8); NEUTROPHIL (%) 88.4 % (45-76); PLATELET COUNT 226 K/uL (156-360); RBC DIS.WIDTH-CV 16.1 % (11.8-14.6); RBC DIS.WIDTH-SD 61.4 % (39-53); WHITE BLOOD COUNT 11.3 K/uL (4.1-10.2)
[2017-01-17 08:22] LABS: TROP-I INTERPRETATION NEGATIVE; TROPONIN-I 0.03 ng/mL (0.0-0.30)
[2017-01-17 08:29] LABS: ANION GAP 6 MEQ/L (2-14); CHLORIDE 89 MEQ/L (99-109); GFR ESTIMATE (CALCULATED) > 59 mL/min/; GLUCOSE 269 mg/dL (70-99); POTASSIUM 5.7 MEQ/L (3.7-5.4); SAMPLE HEMOLYSIS CHECK 0; SAMPLE ICTERIC CHECK 0; SAMPLE LIPEMIA CHECK 0; SODIUM 135 MEQ/L (136-147); UREA NITROGEN (BUN) 47 mg/dL (9-23)
[2017-01-17 11:53] VITALS: BP 137/63
== END 2017-01-17 11:53 | disposition home or self-care (01) ==
LOC: EME 07:12
PROVIDERS: Emergency Medicine
DX: J44.9 Chronic obstructive pulmonary disease, unspecified (principal); J96.90 Respiratory failure, unspecified, unspecified whether with hypoxia or hypercapnia; E87.5 Hyperkalemia; D64.9 Anemia, unspecified; Z93.0 Tracheostomy status; Z99.11 Dependence on respirator [ventilator] status; Z87.891 Personal history of nicotine dependence; E11.9 Type 2 diabetes mellitus without complications; Z79.4 Long term (current) use of insulin; E78.5 Hyperlipidemia, unspecified; I10 Essential (primary) hypertension; E03.9 Hypothyroidism, unspecified; Z93.1 Gastrostomy status; G20 Parkinson's disease; Z88.1 Allergy status to other antibiotic agents
CPT/HCPCS: 36600; 71010; 80048; 82803; 84484; 85025; 87070; 87077; 87186; 87205; 93005; 94002; 99281; 99285

== ENCOUNTER 2017-01-22 01:38 | Inpatient (IN) | payer OTHER ==
[~2017-01-22] VITALS: Ht 157.5 cm; Wt 66.3 kg
[2017-01-22] VITALS (17 sets, daily range): BP systolic 94–162; BP diastolic 47–83
[2017-01-22 02:41] LABS: INTER. NORMALIZED RATIO 1.1; PROTHROMBIN TIME 12.3 SEC (10.2-12.9)
[2017-01-22 02:44] LABS: CHLORIDE 86 mEq/L (99-109); POTASSIUM 4.6 mEq/L (3.7-5.4); PTT 33.6 SEC (25-37); SODIUM 133 mEq/L (136-147)
[2017-01-22 02:45] LABS: EOSINOPHIL (%) 0.2 % (0-5); HEMATOCRIT 21.3 % (36.0-46.0); IMMATURE GRANULOCYTE (%) 1.5 % (0.0-0.7); IMMATURE GRANULOCYTE COUNT 0.2 K/uL; INSTRUMENT ABS NEUTROPHIL CT 11.2 K/uL; LYMPHOCYTE COUNT 0.4 K/uL (1.0-2.8); MCH 31.1 PG (29.0-34.0); MCHC 30.5 G/DL (30.0-36.0); MCV 101.9 FL (83-99); MEAN PLAT.VOLUME 12.2 uM^3 (9.5-12.4); MONOCYTE (%) 5.6 % (3-12); MONOCYTE COUNT 0.7 K/uL (0-0.8); NEUTROPHIL (%) 89.1 % (45-76); NEUTROPHIL COUNT 11.2 K/uL (1.8-6.4); NRBC (%) 0.4 /100 WBC (0-0); PLATELET COUNT 188 K/uL (156-360); RBC DIS.WIDTH-CV 16.5 % (11.8-14.6); RED BLOOD COUNT 2.09 M/uL (3.80-5.20); WHITE BLOOD COUNT 12.6 K/uL (4.1-10.2)
[2017-01-22 02:48] LABS: ANION GAP 11 MEQ/L (2-14)
[2017-01-22 02:49] LABS: TOTAL BILIRUBIN 0.3 mg/dL (0.0-1.0)
[2017-01-22 02:50] LABS: ALKALINE PHOSPHATASE 270 IU/L (3-129)
[2017-01-22 02:51] LABS: GFR ESTIMATE (CALCULATED) > 59 mL/min/
[2017-01-22 02:52] LABS: DIRECT BILIRUBIN 0.2 mg/dL (0.0-0.3); UREA NITROGEN (BUN) 53 mg/dL (9-23)
[2017-01-22 02:54] LABS: TROP-I INTERPRETATION NEGATIVE; TROPONIN-I 0.02 ng/mL (0.0-0.30)
[2017-01-22 02:57] LABS: GLUCOSE 413 mg/dL (70-99)
[2017-01-22 03:12] LABS: ADD MIUA? YES; BILIRUBIN NEGATIVE; BLOOD NEGATIVE; COLOR YELLOW ((YELLOW)); GLUCOSE (STRIP) >=500; KETONES NEGATIVE; LEUKOCYTES LARGE; NITRITE NEGATIVE; PROTEIN (STRIP) 100; UROBILINOGEN 0.2 MG/DL (0.2-1.0)
[2017-01-22 03:34] LABS: BACTERIA 4+ /HPF; EPITHELIAL CELLS RARE /HPF; MUCUS NONE SEEN /LPF; RED BLOOD CELLS 0-5 /HPF (0-5); UCUL ADDED? YES; WHITE BLOOD CELLS TNTC /HPF (0-5)
[2017-01-22 03:35] LABS: CASTS NONE SEEN /LPF; CRYSTALS NONE SEEN
[2017-01-22 05:45] LABS: POINT-OF-CARE METER ID UU13113747
[2017-01-22 07:55] LABS: METH RESISTANT S AUREUS PCR POSITIVE (NEGATIVE); PROBE CHECK PASS
[2017-01-22 08:41] LABS: MCV 98.8 FL (83-99)
[2017-01-22 09:34] LABS: POINT-OF-CARE METER ID UU14314083
[2017-01-22] MEDS ORDERED: PERIDEX473 ML MM (11:40)
[2017-01-22] MEDS ORDERED: ALBUTEROL2.5 MG/3 M IH ×2 (11:41)
[2017-01-22 13:51] LABS: POINT-OF-CARE METER ID UU14314083
[2017-01-22 17:09] LABS: POINT-OF-CARE METER ID UU14314083
[2017-01-22 20:53] LABS: HEMATOCRIT 30.6 % (36.0-46.0); MCV 98.1 FL (83-99)
[2017-01-22 23:45] LABS: POINT-OF-CARE METER ID UU14314083
[2017-01-23] VITALS (8 sets, daily range): BP systolic 76–144; BP diastolic 47–76
[2017-01-23 06:16] LABS: POINT-OF-CARE METER ID UU13113731
[2017-01-23 08:39] LABS: MCV 98.6 FL (83-99)
[2017-01-23 14:00] LABS: POINT-OF-CARE METER ID UU13113803
[2017-01-23 17:45] LABS: POINT-OF-CARE METER ID UU13113803
[2017-01-23 19:37] LABS: HEMATOCRIT 29.1 % (36.0-46.0); MCV 98.6 FL (83-99)
[2017-01-23 23:47] LABS: POINT-OF-CARE METER ID UU13113803
[2017-01-24] VITALS: BP 128/66
[2017-01-24 02:00] VITALS: BP 0/0; BP 122/45
[2017-01-24 04:00] VITALS: BP 131/61
[2017-01-24 05:15] LABS: POINT-OF-CARE METER ID UU13113803
[2017-01-24 05:37] LABS: HEMATOCRIT 29.5 % (36.0-46.0); MCH 30.9 PG (29.0-34.0); MCHC 31.2 G/DL (30.0-36.0); MEAN PLAT.VOLUME 11.9 uM^3 (9.5-12.4); PLATELET COUNT 186 K/uL (156-360); RBC DIS.WIDTH-SD 60.2 % (39-53); WHITE BLOOD COUNT 8.1 K/uL (4.1-10.2)
[2017-01-24 05:47] LABS: RED BLOOD COUNT 2.98 M/uL (3.80-5.20)
[2017-01-24 06:00] VITALS: BP 122/82
[2017-01-24 08:00] VITALS: BP 142/65
[2017-01-24 08:26] LABS: ALKALINE PHOSPHATASE 278 IU/L (3-129); ANION GAP 9 MEQ/L (2-14); CHLORIDE 96 MEQ/L (99-109); GFR ESTIMATE (CALCULATED) > 59 mL/min/; GLUCOSE 236 mg/dL (70-99); SAMPLE HEMOLYSIS CHECK 0; SAMPLE ICTERIC CHECK 0; SAMPLE LIPEMIA CHECK 0; SODIUM 138 MEQ/L (136-147); TOTAL BILIRUBIN 0.4 MG/DL (0.0-1.0); UREA NITROGEN (BUN) 31 mg/dL (9-23)
[2017-01-24 10:00] VITALS: BP 174/88
[2017-01-24 12:56] LABS: POINT-OF-CARE METER ID UU14162636
== END 2017-01-24 13:30 | DRG 812 ==
LOC: EME → EDBD 01:38 → EDOF 04:01 → 4WEST 04:01 → ENRESERV 04:06 → 4WEST 05:41 → ENPENDDIS 01-24 12:30 → 4WEST 01-24 13:30
PROVIDERS: Emergency Medicine; Hospitalist
DX: D62 Acute posthemorrhagic anemia (principal); K92.1 Melena; J96.10 Chronic respiratory failure, unspecified whether with hypoxia or hypercapnia; Z99.11 Dependence on respirator [ventilator] status; J44.9 Chronic obstructive pulmonary disease, unspecified; G20 Parkinson's disease; F25.9 Schizoaffective disorder, unspecified; R41.82 Altered mental status, unspecified; I10 Essential (primary) hypertension; E11.9 Type 2 diabetes mellitus without complications; E78.5 Hyperlipidemia, unspecified; E03.9 Hypothyroidism, unspecified; F31.9 Bipolar disorder, unspecified; Z93.1 Gastrostomy status; Z86.74 Personal history of sudden cardiac arrest; Z87.891 Personal history of nicotine dependence; Z79.4 Long term (current) use of insulin; Z22.39 Carrier of other specified bacterial diseases
CPT/HCPCS: 71010; 80048; 80053; 80076; 81003; 82948; 83605; 84484; 85014; 85018; 85025; 85027; 85610; 85730; 86850; 86900; 86901; 86920; 87040; 87070; 87077; 87086; 87147; 87186; 87205; 87493; 87506; 87641; 90686; 93005; 94002; 94003; 94640; 94640 76; 99202; 99281; 99285; C9113; J0692; J0696; J1815; J7030; J7050; P9016; Q0161

== ENCOUNTER → 2017-05-22 | Outpatient (CLI) | payer OTHER ==
[~2017-05-22] MED LIST changes: +ALBUTEROL2.5 MG/3 M IH; +PERIDEX473 ML MM
== END | disposition home or self-care (01) ==
LOC: RAD 11:00
DX: J96.12 Chronic respiratory failure with hypercapnia (principal); Z93.0 Tracheostomy status
CPT/HCPCS: 70490; 94799

== ENCOUNTER 2017-06-10 16:56 | Inpatient (IN) | payer OTHER ==
[~2017-06-10] VITALS: Ht 152.4 cm; Wt 68.9 kg
[~2017-06-10 16:56] MED LIST changes: -CERTAVITE GT; -LEVO-T150 MCG GT; +LEVO-T175 MCG GT
[2017-06-10 17:43] LABS: BASE EXCESS 19.4 mEq/L (-3 to +3); METHEMOGLOBIN 0.9 % (0-1.5); PO2 164 mm Hg (80-100); pH 7.36 (7.35-7.45)
[2017-06-10 17:44] LABS: COMMENTS - BLOOD GASES A+C+; DEVICE 840 PB VENT; FI02 100 %; PCO2 85 mm Hg (35-45); SITE LR
[2017-06-10 17:45] LABS: MECHANICAL RATE 20 resp/min; MODE AC; PEEP 5 CM/H20; TIDAL VOLUME 400 ML; TOTAL RESP RATE 20 resp/min
[2017-06-10 18:44] LABS: HEMATOCRIT 30.1 % (36.0-46.0); HEMOGLOBIN 9.5 G/DL (11.9-15.5); MCH 30.7 PG (29.0-34.0); MCHC 31.6 G/DL (30.0-36.0); MCV 97.4 FL (83-99); PLATELET COUNT 262 K/uL (156-360); RBC DIS.WIDTH-CV 17.4 % (11.8-14.6); RBC DIS.WIDTH-SD 62.2 % (39-53); RED BLOOD COUNT 3.09 M/uL (3.80-5.20); WHITE BLOOD COUNT 11.5 K/uL (4.1-10.2)
[2017-06-10 19:09] LABS: ALBUMIN 2.8 G/DL (3.2-4.8); ALKALINE PHOSPHATASE 175 IU/L (3-129); ALT (GPT) 19 IU/L (3-49); AST (GOT) 19 IU/L (2-34); CHLORIDE 87 MEQ/L (99-109); CREATININE 0.5 MG/DL (0.6-1.3); GFR ESTIMATE (CALCULATED) > 59 mL/min/; GLUCOSE 206 mg/dL (70-99); SODIUM 132 MEQ/L (136-147); TOTAL BILIRUBIN 0.4 MG/DL (0.0-1.0); TOTAL PROTEIN 6.1 G/DL (6.4-8.3); UREA NITROGEN (BUN) 36 mg/dL (9-23)
[2017-06-10 19:13] LABS: CARBON DIOXIDE (BICARBONATE) > 40.0 MEQ/L (20-31)
[2017-06-10 19:29] LABS: TROP-I INTERPRETATION NEGATIVE; TROPONIN-I 0.03 ng/mL (0.0-0.30)
[2017-06-10 19:30] LABS: ABS NEUTROPHIL COUNT 10.3; ANISOCYTOSIS 1+; BAND NEUTROPHILS 21.9 % (0-8.0); EOSINOPHIL ABS CT 0; LYMPHOCYTES 2.6 % (15.0-45.0); MACROCYTES 1+; METAMYELOCYTES 0.9 %; MICROCYTOSIS 1+; MONOCYTES 5.3 % (0-9.0); MYELOCYTES 1.8 %; POLYCHROMASIA 1+; SEG.NEUTROPHILS 67.5 % (46.0-76.0)
[2017-06-10] MEDS ORDERED: LEVEMIR100 UNIT/2 SC ×2 (19:54→19:55)
[2017-06-10] MEDS ORDERED: NOVOLOG 10100 UNITS/ SC (19:54)
[2017-06-10 23:32] VITALS: BP 169/84
[2017-06-11] VITALS (15 sets, daily range): BP systolic 95–183; BP diastolic 55–95
[2017-06-11 01:03] LABS: TROP-I INTERPRETATION NEGATIVE; TROPONIN-I 0.03 ng/mL (0.0-0.30)
[2017-06-11 06:44] LABS: HEMATOCRIT 31.5 % (36.0-46.0); HEMOGLOBIN 9.9 G/DL (11.9-15.5); MCH 30.4 PG (29.0-34.0); MCHC 31.4 G/DL (30.0-36.0); MCV 96.6 FL (83-99); PLATELET COUNT 259 K/uL (156-360); RBC DIS.WIDTH-CV 17.5 % (11.8-14.6); RBC DIS.WIDTH-SD 63.1 % (39-53); RED BLOOD COUNT 3.26 M/uL (3.80-5.20); WHITE BLOOD COUNT 12.2 K/uL (4.1-10.2)
[2017-06-11 07:03] LABS: ALBUMIN 2.8 G/DL (3.2-4.8); CHLORIDE 91 MEQ/L (99-109); POTASSIUM 4.5 MEQ/L (3.7-5.4); SODIUM 137 MEQ/L (136-147)
[2017-06-11 07:06] LABS: TOTAL BILIRUBIN 0.5 MG/DL (0.0-1.0)
[2017-06-11 07:09] LABS: ALKALINE PHOSPHATASE 180 IU/L (3-129); ALT (GPT) 16 IU/L (3-49); AST (GOT) 17 IU/L (2-34); CREATININE 0.6 MG/DL (0.6-1.3); GFR ESTIMATE (CALCULATED) > 59 mL/min/; TOTAL PROTEIN 5.7 G/DL (6.4-8.3); UREA NITROGEN (BUN) 32 mg/dL (9-23)
[2017-06-11 07:12] LABS: GLUCOSE 90 mg/dL (70-99)
[2017-06-11 07:13] LABS: TROP-I INTERPRETATION NEGATIVE; TROPONIN-I 0.03 ng/mL (0.0-0.30)
[2017-06-12] VITALS (9 sets, daily range): BP systolic 137–179; BP diastolic 71–88
[2017-06-12 02:50] LABS: GLUCOSE 123 mg/dL (70-99)
[2017-06-13] VITALS: BP 156/73
[2017-06-13 04:00] VITALS: BP 158/82
[2017-06-13 05:11] LABS: C DIFF TOXIN NEGATIVE (NEGATIVE)
[2017-06-13 07:30] VITALS: BP 152/63
[2017-06-13 11:16] LABS: HEMATOCRIT 31.9 % (36.0-46.0); HEMOGLOBIN 9.7 G/DL (11.9-15.5); MCH 30.7 PG (29.0-34.0); MCHC 30.4 G/DL (30.0-36.0); PLATELET COUNT 244 K/uL (156-360); RBC DIS.WIDTH-CV 18.1 % (11.8-14.6); RBC DIS.WIDTH-SD 66.7 % (39-53); RED BLOOD COUNT 3.16 M/uL (3.80-5.20); WHITE BLOOD COUNT 11.9 K/uL (4.1-10.2)
[2017-06-13 11:17] LABS: MCV 100.9 FL (83-99)
[2017-06-13 11:33] LABS: ABS NEUTROPHIL COUNT 10.5; ANISOCYTOSIS 1+; BASOPHILS 0.9 %; EOSINOPHIL ABS CT 0; LYMPHOCYTES 3.6 % (15.0-45.0); MACROCYTES 1+; MONOCYTES 3.5 % (0-9.0); MYELOCYTES 3.5 %; PLAT.SUFFICIENCY DECREASED; POLYCHROMASIA 1+; SMUDGE CELLS 1.8
[2017-06-13 11:39] LABS: CHLORIDE 97 MEQ/L (99-109); CREATININE 0.7 MG/DL (0.6-1.3); GFR ESTIMATE (CALCULATED) > 59 mL/min/; POTASSIUM 5.2 MEQ/L (3.7-5.4); SODIUM 136 MEQ/L (136-147); UREA NITROGEN (BUN) 31 mg/dL (9-23)
[2017-06-13 11:42] LABS: GLUCOSE 340 mg/dL (70-99)
[2017-06-13 11:46] LABS: SEG.NEUTROPHILS 88.5 % (46.0-76.0)
[2017-06-13 13:00] VITALS: BP 161/90
[2017-06-13] MEDS ORDERED: ZOSYN 3.373.375 GM/5 IV (13:22)
[2017-06-13 16:00] VITALS: BP 147/65
[2017-06-13 20:00] VITALS: BP 168/68
[2017-06-14] VITALS: BP 150/63
[2017-06-14 02:00] VITALS: BP 148/64
[2017-06-14 04:00] VITALS: BP 152/71
[2017-06-14 06:00] VITALS: BP 166/73
[2017-06-14 08:00] VITALS: BP 168/92
[2017-06-14 12:00] VITALS: BP 175/88
== END 2017-06-14 15:40 | DRG 208 ==
LOC: EME 16:56 → EDOF 20:47 → ENRESERV 20:51 → EDOF 22:41 → 4WEST 22:41 → EDOF 22:41 → 4WEST 23:23
PROVIDERS: Emergency Medicine; Hospitalist; Internal Medicine
PROC: 5A1945Z Respiratory Ventilation, 24-96 Consecutive Hours (ICD-10-PCS; principal; 2017-06-10)
DX: J96.21 Acute and chronic respiratory failure with hypoxia (principal); J18.9 Pneumonia, unspecified organism; J44.0 Chronic obstructive pulmonary disease with (acute) lower respiratory infection; J44.1 Chronic obstructive pulmonary disease with (acute) exacerbation; Z43.0 Encounter for attention to tracheostomy; Z99.11 Dependence on respirator [ventilator] status; L89.312 Pressure ulcer of right buttock, stage 2; R78.81 Bacteremia; E11.649 Type 2 diabetes mellitus with hypoglycemia without coma; R13.10 Dysphagia, unspecified; F25.9 Schizoaffective disorder, unspecified; I10 Essential (primary) hypertension; E78.5 Hyperlipidemia, unspecified; J98.11 Atelectasis; F31.9 Bipolar disorder, unspecified; E03.9 Hypothyroidism, unspecified; L22 Diaper dermatitis; R32 Unspecified urinary incontinence; F41.9 Anxiety disorder, unspecified; Y95 Nosocomial condition; B95.7 Other staphylococcus as the cause of diseases classified elsewhere; E66.01 Morbid (severe) obesity due to excess calories; Z93.1 Gastrostomy status; Z86.74 Personal history of sudden cardiac arrest; Z68.29 Body mass index [BMI] 29.0-29.9, adult; Z87.891 Personal history of nicotine dependence; Z86.14 Personal history of Methicillin resistant Staphylococcus aureus infection; Z79.4 Long term (current) use of insulin; Z22.39 Carrier of other specified bacterial diseases
CPT/HCPCS: 36600; 71045; 80048; 80053; 82803; 82948; 83605; 84484; 84999; 85025; 85027; 86850; 86900; 86901; 87040; 87070; 87077; 87081; 87186; 87205; 87493; 87502; 87641; 87801; 93005; 94002; 94003; 94640; 94640 76; 94668; 99202; 99281; 99285; C9113; J1644; J1815; J2354; J2543; J2997; J3370; J7030; J7050; Q0161

== ENCOUNTER 2017-06-30 07:53 | Emergency (ER) | payer OTHER ==
[~2017-06-30] VITALS: Ht 152.4 cm; Wt 65.7 kg
[~2017-06-30 07:53] MED LIST changes: +ZOSYN 3.373.375 GM/5 IV
[2017-06-30 08:31] LABS: HEMATOCRIT 25.9 % (36.0-46.0); HEMOGLOBIN 8.1 G/DL (11.9-15.5); MCH 31.4 PG (29.0-34.0); MCHC 31.3 G/DL (30.0-36.0); MCV 100.4 FL (83-99); RBC DIS.WIDTH-CV 18.7 % (11.8-14.6); RBC DIS.WIDTH-SD 68.3 % (39-53); RED BLOOD COUNT 2.58 M/uL (3.80-5.20); WHITE BLOOD COUNT 7.7 K/uL (4.1-10.2)
[2017-06-30 08:32] LABS: INTER. NORMALIZED RATIO 1.1
[2017-06-30 08:35] LABS: PTT 29.8 SEC (25-37)
[2017-06-30 08:43] LABS: CHLORIDE 89 mEq/L (99-109); POTASSIUM 4.3 mEq/L (3.7-5.4); SODIUM 132 mEq/L (136-147)
[2017-06-30 08:44] LABS: MAGNESIUM 2.2 mg/dL (1.3-2.7)
[2017-06-30 08:46] LABS: GLUCOSE 422 mg/dL (70-99)
[2017-06-30 08:49] LABS: GFR ESTIMATE (CALCULATED) > 59 mL/min/
[2017-06-30 08:50] LABS: TROP-I INTERPRETATION NEGATIVE; TROPONIN-I 0.07 ng/mL (0.0-0.30); UREA NITROGEN (BUN) 42 mg/dL (9-23)
[2017-06-30 08:51] LABS: CARBOXY HGB 2.4 % (0-5); METHEMOGLOBIN 0.9 % (0-1.5)
[2017-06-30 08:53] LABS: BICARBONATE 36.6 mEq/L (22-26); COMMENTS - BLOOD GASES NAC+; DEVICE 980; FI02 35 %; MECHANICAL RATE 20 resp/min; MODE A/C; PCO2 48 mm Hg (35-45); PEEP 5 CM/H20; PO2 77 mm Hg (80-100); SITE LR; TIDAL VOLUME 450 ML; TOTAL RESP RATE 20 resp/min; pH 7.49 (7.35-7.45)
[2017-06-30 09:03] LABS: BASOPHIL (%) 0.3 % (0-1); EOSINOPHIL (%) 1.7 % (0-5); EOSINOPHIL COUNT 0.1 K/uL (0-0.3); IMMATURE GRANULOCYTE (%) 2.6 % (0.0-0.7); LYMPHOCYTE (%) 3.5 % (15-42); LYMPHOCYTE COUNT 0.3 K/uL (1.0-2.8); MONOCYTE (%) 4.9 % (3-12); MONOCYTE COUNT 0.4 K/uL (0-0.8); NEUTROPHIL COUNT 6.7 K/uL (1.8-6.4); PLAT.SUFFICIENCY ADEQUATE
[2017-06-30 09:06] LABS: PLATELET COUNT 165 K/uL (156-360)
[2017-06-30 11:26] LABS: TROP-I INTERPRETATION NEGATIVE
[2017-06-30 12:01] LABS: APPEARANCE CLEAR ((CLEAR)); BILIRUBIN NEGATIVE; BLOOD NEGATIVE; COLOR YELLOW ((YELLOW)); GLUCOSE (STRIP) >=500; KETONES NEGATIVE; LEUKOCYTES NEGATIVE; NITRITE NEGATIVE; PROTEIN (STRIP) 100; SPECIFIC GRAVITY 1.006 (1.000-1.030); UROBILINOGEN 0.2 MG/DL (0.2-1.0)
[2017-06-30 12:04] LABS: BACTERIA NONE SEEN /HPF; EPITHELIAL CELLS NONE SEEN /HPF; MUCUS NONE SEEN /LPF; RED BLOOD CELLS 0-5 /HPF (0-5); UCUL ADDED? NO; WHITE BLOOD CELLS 0-5 /HPF (0-5)
[2017-06-30 15:30] VITALS: BP 164/89
== END 2017-06-30 16:31 | disposition designated cancer center or children's hospital (05) ==
LOC: EME 07:53
PROVIDERS: Emergency Medicine
PROC: 5A0935Z Assistance with Respiratory Ventilation, Less than 24 Consecutive Hours (ICD-10-PCS; principal; 2017-06-30)
DX: R09.2 Respiratory arrest (principal); Z99.11 Dependence on respirator [ventilator] status; Z93.0 Tracheostomy status; D64.9 Anemia, unspecified; J44.9 Chronic obstructive pulmonary disease, unspecified; E11.9 Type 2 diabetes mellitus without complications; Z79.4 Long term (current) use of insulin; E78.5 Hyperlipidemia, unspecified; I10 Essential (primary) hypertension; F41.9 Anxiety disorder, unspecified; E03.9 Hypothyroidism, unspecified; G20 Parkinson's disease; Z87.891 Personal history of nicotine dependence; M81.0 Age-related osteoporosis without current pathological fracture
CPT/HCPCS: 36600; 71045; 80048; 81003; 82803; 82948; 83605; 83735; 84484; 85025; 85610; 85730; 87040; 87070; 87077; 87186; 87205; 87801; 93005; 94002; 99281; 99285; J7030

== ENCOUNTER 2017-08-10 22:52 | Inpatient (IN) | payer OTHER ==
[~2017-08-10] VITALS: Ht 165.1 cm; Wt 66.3 kg
[2017-08-10 23:16] LABS: HEMATOCRIT 29.3 % (36.0-46.0); HEMOGLOBIN 9.4 G/DL (11.9-15.5); MCH 31.3 PG (29.0-34.0); MCHC 32.1 G/DL (30.0-36.0); MCV 97.7 FL (83-99); NRBC (%) 0.1 /100 WBC (0-0); PLATELET COUNT 248 K/uL (156-360); RBC DIS.WIDTH-CV 17.2 % (11.8-14.6); RBC DIS.WIDTH-SD 61.2 % (39-53); WHITE BLOOD COUNT 15.2 K/uL (4.1-10.2)
[2017-08-10 23:25] LABS: ALBUMIN 3.3 g/dL (3.2-4.8); CHLORIDE 93 mEq/L (99-109); POTASSIUM 4.6 mEq/L (3.7-5.4); SODIUM 130 mEq/L (136-147)
[2017-08-10 23:26] LABS: MAGNESIUM 2.3 mg/dL (1.3-2.7)
[2017-08-10 23:28] LABS: TOTAL PROTEIN 6.9 g/dL (6.4-8.3)
[2017-08-10 23:30] LABS: TOTAL BILIRUBIN 0.4 mg/dL (0.0-1.0)
[2017-08-10 23:31] LABS: ALKALINE PHOSPHATASE 211 IU/L (3-129); GFR ESTIMATE (CALCULATED) > 59 mL/min/
[2017-08-10 23:32] LABS: UREA NITROGEN (BUN) 65 mg/dL (9-23)
[2017-08-10 23:33] LABS: AST (GOT) 143 IU/L (2-34)
[2017-08-10 23:34] LABS: ALT (GPT) 107 IU/L (3-49); CREATINE KINASE 65 IU/L (1-294); TOTAL CK 65 IU/L (1-294)
[2017-08-10 23:37] LABS: TROP-I INTERPRETATION NEGATIVE; TROPONIN-I 0.03 ng/mL (0.0-0.30)
[2017-08-10 23:38] LABS: GLUCOSE 475 mg/dL (70-99)
[2017-08-10 23:43] LABS: APPEARANCE TURBID ((CLEAR)); BILIRUBIN NEGATIVE; BLOOD SMALL; COLOR AMBER ((YELLOW)); GLUCOSE (STRIP) >=500; KETONES NEGATIVE; LEUKOCYTES LARGE; NITRITE NEGATIVE; PROTEIN (STRIP) >=500; SPECIFIC GRAVITY 1.008 (1.000-1.030); UROBILINOGEN 0.2 MG/DL (0.2-1.0)
[2017-08-10 23:45] LABS: CK-MB 1.6 ng/mL (0.0-4.9); CKMB RELATIVE INDEX 2.5 (0.0-3.9)
[2017-08-10 23:51] LABS: BASE EXCESS 4.2 mEq/L (-3 to +3); CARBOXY HGB 2.5 % (0-5); METHEMOGLOBIN 1.3 % (0-1.5); PO2 153 mm Hg (80-100)
[2017-08-10 23:52] LABS: COMMENTS - BLOOD GASES C+; DEVICE VENT; FI02 60 %; MECHANICAL RATE 16 resp/min; MODE A/C; PCO2 68 mm Hg (35-45); PEEP 5 CM/H20; SITE LR; TIDAL VOLUME 400 ML; TOTAL RESP RATE 16 resp/min; pH 7.28 (7.35-7.45)
[2017-08-10 23:59] LABS: BACTERIA 3+ /HPF; UCUL ADDED? YES; WHITE BLOOD CELLS TNTC /HPF (0-5)
[2017-08-11] VITALS (21 sets, daily range): BP systolic 115–199; BP diastolic 56–114
[2017-08-11 00:04] LABS: AMPHETAMINE NEGATIVE (500 ng/mL); BARBITURATES NEGATIVE (200 ng/mL); BENZODIAZEPINES PRESUMPTIVE POSITIVE (150 ng/mL); BUPRENORPHINE NEGATIVE (10 ng/mL); COCAINE NEGATIVE (150 ng/mL); METHADONE NEGATIVE (200 ng/mL); METHAMPHETAMINE NEGATIVE (500 ng/mL); OPIATES (MORPHINE) NEGATIVE (100 ng/mL); OXYCODONE NEGATIVE (100 ng/mL); PHENCYCLIDINE NEGATIVE (25 ng/mL); PROPOXYPHENE NEGATIVE (300 ng/mL); TRICYCLIC ANTIDEPRESSANTS NEGATIVE (300 ng/mL)
[2017-08-11] MEDS ORDERED: ZINC SULFATE220 M1 GT (00:36)
[2017-08-11] MEDS ORDERED: VITAMIN C500 M1 GT (00:36)
[2017-08-11] MEDS ORDERED: LEVEMIR100 UNIT/2 SC (00:42)
[2017-08-11] MEDS ORDERED: PERCOCET 5/31 TABLET GT (00:43)
[2017-08-11] MEDS ORDERED: CHILDREN'S160 MG/12 GT (00:44)
[2017-08-11] MEDS ORDERED: PROTONIX40 M1 GT (00:45)
[2017-08-11] MEDS ORDERED: LOPRESSOR25 MG GT (00:46)
[2017-08-11] MEDS ORDERED: ZOLOFT50 MG GT (00:46)
[2017-08-11] MEDS ORDERED: NORVASC5 MG GT (00:46)
[2017-08-11] MEDS ORDERED: SILACE50 MG/5 ML GT (00:47)
[2017-08-11] MEDS ORDERED: VITAMIN D22000 UNIT GT (00:47)
[2017-08-11] MEDS ORDERED: TRICOR145 MG GT (00:47)
[2017-08-11] MEDS ORDERED: PRAVACHOL20 MG GT (00:48)
[2017-08-11] MEDS ORDERED: SENNA8.8 MG/5 M GT (00:48)
[2017-08-11] MEDS ORDERED: CERTA VITE9 MG/15 ML GT (00:49)
[2017-08-11] MEDS ORDERED: BISAC-EVAC10 MG PR (00:49)
[2017-08-11] MEDS ORDERED: CONSTULOSE10 GM/15 M GT (00:52)
[2017-08-11] MEDS ORDERED: OCTREOTIDE IV (00:52)
[2017-08-11] MEDS ORDERED: GLUCAGEN1 MG/1 ML IM (00:53)
[2017-08-11] MEDS ORDERED: AMIODARONE HCL100 MG GT (00:53)
[2017-08-11] MEDS ORDERED: NEURONTIN300 MG GT (00:53)
[2017-08-11] MEDS ORDERED: NOVOLOG 10100 UNITS/ SC ×2 (00:54→00:57)
[2017-08-11] MEDS ORDERED: LEVO-T175 MCG GT (00:54)
[2017-08-11] MEDS ORDERED: THORAZINE50 MG GT (00:55)
[2017-08-11] MEDS ORDERED: THORAZINE25 MG GT (00:56)
[2017-08-11] MEDS ORDERED: BENZTROPINE ME0.5 MG GT (00:56)
[2017-08-11] MEDS ORDERED: ATIVAN1 MG GT (00:56)
[2017-08-11] MEDS ORDERED: CALMOSEPTINE O3.5 GM TP (00:58)
[2017-08-11] MEDS ORDERED: PULMOCARE GT (00:59)
[2017-08-11] MEDS ORDERED: AQUAPHILIC454 GM TP (00:59)
[2017-08-11] MEDS ORDERED: SELENIUM SULFI180 ML TP (01:01)
[2017-08-11] MEDS ORDERED: PERIDEX473 ML MM (01:01)
[2017-08-11] MEDS ORDERED: ALBUTEROL2.5 MG/3 M IH (01:02)
[2017-08-11 01:37] LABS: ABS NEUTROPHIL COUNT 13.2; ANISOCYTOSIS 1+; ATYPICAL LYMPHOCYTE 0.9 %; BAND NEUTROPHILS 6.1 % (0-8.0); EOSINOPHIL ABS CT 0; GIANT PLATELETS 1+; LYMPHOCYTES 9.6 % (15.0-45.0); METAMYELOCYTES 0.9 %; MICROCYTOSIS 1+; MONOCYTES 0.9 % (0-9.0); MYELOCYTES 0.9 %; PLAT.SUFFICIENCY ADEQUATE; SEG.NEUTROPHILS 80.7 % (46.0-76.0); TOXIC GRANULATION 2+
[2017-08-11 02:10] LABS: BENZODIAZEPINES, URINE SCREEN Negative (200 ng/mL)
[2017-08-11 03:04] LABS: THC CANNABINOIDS NEGATIVE (50 ng/mL)
[2017-08-11 09:21] LABS: HEMOGLOBIN A1c (GLYCOHEMOGLOB) 6.6 % (Below 5.7)
[2017-08-11 16:17] LABS: BASE EXCESS 2.8 mEq/L (-3 to +3); BICARBONATE 28.4 mEq/L (22-26); CARBOXY HGB 2.3 % (0-5); COMMENTS - BLOOD GASES C+; DEVICE VENT; FI02 30 %; MECHANICAL RATE 16 resp/min; METHEMOGLOBIN 1.9 % (0-1.5); MODE AC; PCO2 48 mm Hg (35-45); PEEP 5 CM/H20; PO2 66 mm Hg (80-100); SITE RB; TIDAL VOLUME 450 ML; TOTAL RESP RATE 16 resp/min; pH 7.38 (7.35-7.45)
[2017-08-12] VITALS (22 sets, daily range): BP systolic 82–189; BP diastolic 46–112
[2017-08-12 04:47] LABS: HEMATOCRIT 31.9 % (36.0-46.0); HEMOGLOBIN 10.3 G/DL (11.9-15.5); MCH 31.3 PG (29.0-34.0); MCHC 32.3 G/DL (30.0-36.0); PLATELET COUNT 198 K/uL (156-360); RBC DIS.WIDTH-CV 17.3 % (11.8-14.6); RBC DIS.WIDTH-SD 61.2 % (39-53); RED BLOOD COUNT 3.29 M/uL (3.80-5.20); WHITE BLOOD COUNT 14.3 K/uL (4.1-10.2)
[2017-08-12 05:03] LABS: ALBUMIN 3.4 g/dL (3.2-4.8); CHLORIDE 105 mEq/L (99-109); POTASSIUM 4.4 mEq/L (3.7-5.4); SODIUM 140 mEq/L (136-147)
[2017-08-12 05:05] LABS: TOTAL PROTEIN 7.3 g/dL (6.4-8.3)
[2017-08-12 05:08] LABS: GLUCOSE 180 mg/dL (70-99); TOTAL BILIRUBIN 0.3 mg/dL (0.0-1.0)
[2017-08-12 05:09] LABS: ALKALINE PHOSPHATASE 224 IU/L (3-129); CREATININE 0.7 mg/dL (0.6-1.3); GFR ESTIMATE (CALCULATED) > 59 mL/min/
[2017-08-12 05:10] LABS: UREA NITROGEN (BUN) 41 mg/dL (9-23)
[2017-08-12 05:12] LABS: ALT (GPT) 68 IU/L (3-49)
[2017-08-12 05:15] LABS: AST (GOT) 60 IU/L (2-34)
[2017-08-13] VITALS (17 sets, daily range): BP systolic 139–173; BP diastolic 65–95
[2017-08-13 05:15] LABS: HEMATOCRIT 30.6 % (36.0-46.0); HEMOGLOBIN 9.8 G/DL (11.9-15.5); MCH 31.1 PG (29.0-34.0); MCV 97.1 FL (83-99); PLATELET COUNT 253 K/uL (156-360); RBC DIS.WIDTH-CV 17.8 % (11.8-14.6); RBC DIS.WIDTH-SD 62.4 % (39-53); RED BLOOD COUNT 3.15 M/uL (3.80-5.20); WHITE BLOOD COUNT 24.3 K/uL (4.1-10.2)
[2017-08-13 06:35] LABS: CHLORIDE 105 MEQ/L (99-109); CREATININE 0.7 MG/DL (0.6-1.3); GFR ESTIMATE (CALCULATED) > 59 mL/min/; GLUCOSE 241 mg/dL (70-99); POTASSIUM 3.6 MEQ/L (3.7-5.4); SODIUM 144 MEQ/L (136-147); UREA NITROGEN (BUN) 33 mg/dL (9-23)
[2017-08-14] VITALS (12 sets, daily range): BP systolic 99–150; BP diastolic 47–79
[2017-08-14 05:35] LABS: BASOPHIL (%) 0.1 % (0-1); EOSINOPHIL (%) 0 % (0-5); HEMATOCRIT 24.1 % (36.0-46.0); IMMATURE GRANULOCYTE (%) 1.2 % (0.0-0.7); LYMPHOCYTE (%) 3.5 % (15-42); MCH 31.4 PG (29.0-34.0); MCHC 31.5 G/DL (30.0-36.0); MCV 99.6 FL (83-99); MONOCYTE (%) 2.7 % (3-12); MONOCYTE COUNT 0.8 K/uL (0-0.8); NEUTROPHIL (%) 92.5 % (45-76); NEUTROPHIL COUNT 25.7 K/uL (1.8-6.4); NRBC (%) 0.1 /100 WBC (0-0); PLATELET COUNT 211 K/uL (156-360); RBC DIS.WIDTH-CV 18.3 % (11.8-14.6); RBC DIS.WIDTH-SD 65.6 % (39-53); WHITE BLOOD COUNT 27.8 K/uL (4.1-10.2)
[2017-08-14 05:39] LABS: HEMOGLOBIN 7.6 G/DL (11.9-15.5); RED BLOOD COUNT 2.42 M/uL (3.80-5.20)
[2017-08-14 05:54] LABS: PREALBUMIN 9.9 mg/dL (10-40)
[2017-08-14 08:09] LABS: CHLORIDE 107 MEQ/L (99-109); CREATININE 0.8 MG/DL (0.6-1.3); GFR ESTIMATE (CALCULATED) > 59 mL/min/; GLUCOSE 222 mg/dL (70-99); POTASSIUM 3.6 MEQ/L (3.7-5.4); SODIUM 147 MEQ/L (136-147); UREA NITROGEN (BUN) 47 mg/dL (9-23)
[2017-08-15] VITALS (21 sets, daily range): BP systolic 86–168; BP diastolic 42–91
[2017-08-15 06:00] LABS: CHLORIDE 107 MEQ/L (99-109); CREATININE 0.9 MG/DL (0.6-1.3); GFR ESTIMATE (CALCULATED) > 59 mL/min/; GLUCOSE 216 mg/dL (70-99); POTASSIUM 3.8 MEQ/L (3.7-5.4); SODIUM 149 MEQ/L (136-147); UREA NITROGEN (BUN) 64 mg/dL (9-23)
[2017-08-15 06:29] LABS: BASOPHIL (%) 0.1 % (0-1); EOSINOPHIL (%) 0 % (0-5); HEMATOCRIT 22.4 % (36.0-46.0); IMMATURE GRANULOCYTE (%) 1.5 % (0.0-0.7); LYMPHOCYTE (%) 4.7 % (15-42); MCH 31.1 PG (29.0-34.0); MCHC 30.4 G/DL (30.0-36.0); MCV 102.3 FL (83-99); MONOCYTE (%) 3.5 % (3-12); MONOCYTE COUNT 0.8 K/uL (0-0.8); NEUTROPHIL (%) 90.2 % (45-76); NEUTROPHIL COUNT 19.8 K/uL (1.8-6.4); NRBC (%) 0.1 /100 WBC (0-0); PLATELET COUNT 188 K/uL (156-360); RBC DIS.WIDTH-CV 18.9 % (11.8-14.6); RBC DIS.WIDTH-SD 69.3 % (39-53); RED BLOOD COUNT 2.19 M/uL (3.80-5.20); WHITE BLOOD COUNT 21.9 K/uL (4.1-10.2)
[2017-08-15 06:35] LABS: HEMOGLOBIN 6.8 G/DL (11.9-15.5)
[2017-08-16] VITALS (16 sets, daily range): BP systolic 114–168; BP diastolic 55–91
[2017-08-16 05:29] LABS: BASOPHIL (%) 0.3 % (0-1); BASOPHIL COUNT 0.1 K/uL (0-0.1); EOSINOPHIL (%) 0.1 % (0-5); HEMATOCRIT 25.6 % (36.0-46.0); HEMOGLOBIN 7.6 G/DL (11.9-15.5); IMMATURE GRANULOCYTE (%) 2.4 % (0.0-0.7); LYMPHOCYTE (%) 5.2 % (15-42); MCH 30.8 PG (29.0-34.0); MCHC 29.7 G/DL (30.0-36.0); MCV 103.6 FL (83-99); MONOCYTE (%) 4.3 % (3-12); MONOCYTE COUNT 0.8 K/uL (0-0.8); NEUTROPHIL (%) 87.7 % (45-76); NEUTROPHIL COUNT 16.1 K/uL (1.8-6.4); NRBC (%) 0.2 /100 WBC (0-0); PLATELET COUNT 179 K/uL (156-360); RBC DIS.WIDTH-CV 18.9 % (11.8-14.6); RBC DIS.WIDTH-SD 70.8 % (39-53); RED BLOOD COUNT 2.47 M/uL (3.80-5.20); WHITE BLOOD COUNT 18.3 K/uL (4.1-10.2)
[2017-08-16 05:46] LABS: CHLORIDE 110 MEQ/L (99-109); CREATININE 0.9 MG/DL (0.6-1.3); GFR ESTIMATE (CALCULATED) > 59 mL/min/; GLUCOSE 155 mg/dL (70-99); POTASSIUM 4.2 MEQ/L (3.7-5.4); SODIUM 153 MEQ/L (136-147); UREA NITROGEN (BUN) 68 mg/dL (9-23)
[2017-08-17 02:01] VITALS: BP 142/66
[2017-08-17 04:01] VITALS: BP 135/68
[2017-08-17 12:01] VITALS: BP 144/70
[2017-08-17 14:01] VITALS: BP 144/83
== END 2017-08-17 16:00 | disposition designated cancer center or children's hospital (05) | DRG 207 ==
LOC: EME → EDBD 22:52 → EME 22:52 → 4WEST 08-11 01:52 → EDOF 08-11 01:52 → 4WEST 08-11 01:52 → ENRESERV 08-11 01:59 → 4WEST 08-11 03:15
PROVIDERS: Emergency Medicine; Internal Medicine Pulmonary Disease; Nurse Practitioner; Specialist; Surgery
PROC: 5A1955Z Respiratory Ventilation, Greater than 96 Consecutive Hours (ICD-10-PCS; principal; 2017-08-11)
DX: J95.03 Malfunction of tracheostomy stoma (principal); A41.9 Sepsis, unspecified organism; J18.9 Pneumonia, unspecified organism; G93.1 Anoxic brain damage, not elsewhere classified; J44.0 Chronic obstructive pulmonary disease with (acute) lower respiratory infection; J96.21 Acute and chronic respiratory failure with hypoxia; I46.8 Cardiac arrest due to other underlying condition; L89.312 Pressure ulcer of right buttock, stage 2; L89.222 Pressure ulcer of left hip, stage 2; R40.3 Persistent vegetative state; G25.3 Myoclonus; N39.0 Urinary tract infection, site not specified; B95.2 Enterococcus as the cause of diseases classified elsewhere; Z16.21 Resistance to vancomycin; E87.2 Acidosis; E11.65 Type 2 diabetes mellitus with hyperglycemia; Z66 Do not resuscitate; Z99.11 Dependence on respirator [ventilator] status; Z93.1 Gastrostomy status; J98.11 Atelectasis; I95.9 Hypotension, unspecified; R32 Unspecified urinary incontinence; G20 Parkinson's disease; I10 Essential (primary) hypertension; F25.9 Schizoaffective disorder, unspecified; E78.5 Hyperlipidemia, unspecified; E03.9 Hypothyroidism, unspecified; D64.9 Anemia, unspecified; M81.0 Age-related osteoporosis without current pathological fracture; F31.9 Bipolar disorder, unspecified; F41.9 Anxiety disorder, unspecified; Z87.891 Personal history of nicotine dependence; Z79.4 Long term (current) use of insulin; Z87.19 Personal history of other diseases of the digestive system
CPT/HCPCS: 36600; 70450; 71045; 80048; 80053; 81003; 82550; 82553; 82803; 82948; 83036; 83605; 83735; 84134; 84484; 84999; 85025; 85027; 87040; 87070; 87077; 87081; 87086; 87147; 87186; 87205; 87641; 93005; 94002; 94003; 94640; 94640 76; 94760; 95819; 99281; 99285; J0692; J1650; J1815; J2060; J2354; J2543; J3370; J7030; J7050; Q0161